=== PATIENT | male | born 1935 | race Caucasian/White ===

== ENCOUNTER 2021-12-13 17:23 | Inpatient (IN) ==
[~2021-12-13 17:23] MED LIST: REMDESIVIR 100 MG in 0.9 % SODIUM CHLORIDE 250 ML IV SCH
[2021-12-13] MEDS ORDERED: IOPAMIDOL 100 ML BOTTLE IV ONE (17:24)
[2021-12-13] MEDS ORDERED: 0.9 % SODIUM CHLORIDE 1,000 ML IV ONE (17:42)
[2021-12-13] MEDS ORDERED: ACETAMINOPHEN 1,000 MG/100 ML BAG IV ONE (17:44)
--- NOTE | 2021-12-13 17:44 | Emergency Department Note ---
HPI General Chief complaint: Shortness of Breath/Dyspnea Stated complaint: SOB. altered mental Time Seen by Provider: 12/13/21 17:30 Source: EMS Mode of arrival: EMS History of Present Illness HPI Narrative: This is an 86-year-old male patient who was seen yesterday for hypoxia and diagnosed with Covid infection. Oxygen requirements were 1 to 2 L to keep his sats above 90% yesterday, and the patient had a unremarkable work-up other than his Covid, and was discharged home. Today he returns with evidence of sepsis with tachycardia to 129 bpm, respiratory rate of 28, temperature of 102.9 Fahrenheit, and oxygen saturations that were noted to be 83% on his 2 L of home oxygen. He is now satting 98% on 15 L nonrebreather mask. The patient is a poor historian and has minimal verbal interaction. He does nod his head to yes and no. Unclear if he has baseline cognitive dysfunction. His mentation is not significantly altered from yesterday. He is able to tell me the year, his name, and he knows this but cannot tell me the date of 's . Related Data Home Medications Medication Instructions Recorded Confirmed Straight Tip Urine Catheter 12/12/21 12/12/21 allopurinol 100 mg tablet 200 mg PO BID 12/12/21 12/12/21 Previous Rx's Medication Instructions Recorded cholecalciferol (vitamin D3) 25 1,000 unit PO QDAY #90 cap 09/03/15 mcg (1,000 unit) capsule lisinopril 2.5 mg tablet (Zestril) 2.5 mg PO BID #180 tab 08/12/21 metoprolol tartrate 50 mg tablet 25 mg PO BID #90 tab 08/12/21 (Lopressor) simvastatin 20 mg tablet (Zocor) 20 mg PO QPM #90 tab 08/12/21 metformin 500 mg tablet,extended 500 mg PO QDAY #90 tab 09/09/21 release 24 hr Allergies Allergy/AdvReac Type Severity Reaction Status Date / Time Penicillins Allergy Unknown Rash Verified 12/12/21 15:25 Review of Systems ROS ROS Narrative: Not obtained secondary to altered mental status, poor historian [facility] Narrative Patient History Narrative: Narrative: Medical/Surgical/Family History All Active Problems (Updated 12/13/21 @ 19:57 by Leena Gimenez PA-C) Generalized weakness (Acute) Acute UTI (Acute) COVID-19 (Acute) Acute dehydration (Acute) Hypoxia (Acute) Pneumonia due to 2019 novel coronavirus (Acute) Hypoxia (Acute) Sepsis (Acute) Acute delirium (Acute) Pneumonia (Acute) HTN (hypertension) (Acute) DM2 (diabetes mellitus, type 2) (Acute) Bacterial lobar pneumonia (Acute) Gout (Acute) Annual physical exam (Acute) Medicare annual wellness visit, subsequent (Acute) Urinary retention (Acute) Rash (Acute) Medicare annual wellness visit, subsequent (Acute) Prediabetes (Acute) Urinary retention (Acute) Cellulitis of hand, right (Acute) Occipital neuralgia of right side (Acute) Concussion without loss of consciousness (Acute) Abrasion, face w/o infection (Acute) 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) History of knee replacement (Acute) History of carotid endarterectomy (Acute) Hx of CABG (Acute) History of appendectomy (Acute) Urinary incontinence (Acute 03/18/15) Hyperlipidemia (Acute) Gout (Acute) Benign neoplasm of colon (Acute) Cerebrovascular disease (Acute) Carotid artery occlusion (Acute) CAD (coronary artery disease) (Acute) Bladder neck obstruction (Acute) Anemia (Acute 03/18/15) Medical History Abrasion, face w/o infection Anemia (03/18/15) Annual physical exam Bacterial lobar pneumonia Benign neoplasm of colon Bladder neck obstruction CAD (coronary artery disease) (Post CABG) Carotid artery occlusion L CEA Cellulitis of hand, right Cerebrovascular disease Concussion without loss of consciousness Diabetes mellitus, type II Gout Hyperlipidemia Medicare annual wellness visit, subsequent Medicare annual wellness visit, subsequent Occipital neuralgia of right side Rash Urinary bladder neurogenic dysfunction Urinary incontinence (03/18/15) Urinary retention Surgical History History of appendectomy History of carotid endarterectomy L History of knee replacement bilateral History of photovaporization of prostate (12/10/15) Hx of CABG 4 vessel Family History Unknown No pertinent family history Social History Smoking Status: Former smoker Alcohol Intake Frequency: does not drink Substance Use: does not use Exam Narrative Narrative: General: Alert and oriented to self and year. NAD, weak appearing. Mostly nonverbal HEENT: PERRL, EOMI, normocephalic. Moist mucous membranes. Normal facies and normal dentition. Chest: Symmetric, no pain to palpation Respiratory: Lungs clear to auscultation bilaterally. No respiratory distress. Unlabored breathing. Saturating 97% on 15 L nonrebreather mask. Heart: Regular rate and rhythm, no murmurs/clicks/rubs. Abdomen: Non-tender, Non distended hypoactive bowel tones. No organomegaly. Extremities: Warm and well perfused. No edema. DP 2+ bilaterally. No venous stasis. Neuro: No focal deficits. Cranial nerves II-XII grossly normal. Answering limited questions Skin: Warm dry, no rashes or lesions, no cyanosis. Psych: Normal mood and affect Heme/Lymph: No abnormal bruising Course Course Course Narrative: 86-year-old male with COVID-19 presents for worsening symptoms and concern for sepsis Reevaluation(s) Reevaluation #1: Basic labs, UA, repeat chest x-ray IV fluids, Tylenol for fever Lactic acid and blood cultures Reevaluation #2: Lactic acid is 1.9. Patient's heart rate improved to 105 with 1 L IV fluids and 1g of IV Tylenol. Blood pressure stable at 112/82 mmHg. O2 sats are 97% on 12 L nonrebreather mask. Chest x-ray shows increasing bilateral lower lobe infiltrates that were read as atelectasis yesterday. White blood cell count is 11,800; however, the patient received 6 mg of IV dexamethasone yesterday and this may be a steroid-induced leukocytosis. Check a procalcitonin and given additional 6 mg of IV dexamethasone x1 dose. The patient will need admission for hypoxia and Covid pneumonia and I am awaiting the hospitalist for consult. Vital Signs Vital signs: Vital Signs Temperature 102.9 F H 12/13/21 17:27 Pulse Rate 129 H 12/13/21 17:27 Respiratory Rate 28 H 12/13/21 17:27 Pulse Oximetry (%) 89 L 12/13/21 17:27 Temperature 98.0 F 12/13/21 20:09 Pulse Rate 78 12/13/21 20:22 Respiratory Rate 21 12/13/21 19:16 Blood Pressure 127/66 12/13/21 20:22 Pulse Oximetry (%) 94 12/13/21 20:22 MDM MDM Narrative Medical decision making narrative: Covid pneumonia Hypoxia Weakness Altered mental status Sepsis Patient has been accepted for admission for hypoxia and Covid pneumonia. Lab Data Result diagrams: 12/13/21 17:45 12/13/21 17:45 Labs: Lab Results 12/13/21 12/13/21 12/13/21 Range/Units 17:45 17:45 17:45 WBC 11.8 H (4.5-11.0) K/mcL RBC 3.78 L (4.63-6.08) M/mcL Hgb 11.8 L (13.7-17.5) g/dL Hct 35.6 L (40.1-51.0) % MCV 94.2 (80.0-100.0) fL MCH 31.2 (26.0-34.0) pg MCHC 33.1 (31.0-36.0) g/dL RDW 13.2 (11.5-14.5) % Plt Count 308 (140-440) K/mcL MPV 9.6 (7.4-10.4) fL Seg Neutrophils % 95 H (38-78) % Band Neutrophils % 1 (0-10) % Monocytes % (Manual) 4 (1-12) % Platelet Estimate Normal (Normal) RBC Morphology Normal (Normal) D-Dimer (0.27-0.50) ug/mL VBG Lactic Acid 1.9 (0.5-2.0) mmol/L Sodium 130 L (133-145) mmol/L Potassium 4.7 (3.3-5.1) mmol/L Chloride 98 (96-108) mmol/L Carbon Dioxide 17 L (22-30) mmol/L Anion Gap 15.0 (8.0-16.0) BUN 33 H (8-23) mg/dL Creatinine 1.3 H (0.7-1.2) mg/dL GFR Calculation 49 Glucose 116 H (70-105) mg/dL Calcium 8.8 (8.6-10.4) mg/dL Total Bilirubin 0.4 (0.1-1.0) mg/dL AST 38 (<40) U/L ALT 19 (<40) U/L Alkaline Phosphatase 77 (39-117) U/L C-Reactive Protein (0.03-0.80) mg/dL Total Protein 6.7 (5.9-8.4) gm/dL Albumin 3.8 (3.2-5.2) gm/dL Globulin 2.9 (2.2-3.7) gm/dL Albumin/Globulin Ratio 1.3 (1.0-2.3) Urine Color Urine Appearance (Clear) Urine pH (5.0-9.0) Ur Specific [place] (1.000-1.035) Urine Protein (Negative) mg/dL Urine Glucose (UA) (Negative) mg/dL Urine Ketones (Negative) mg/dL Urine Occult Blood (Negative) jackson/mcL Urine Nitrate (Negative) Urine Bilirubin (Negative) mg/dL Urine Urobilinogen mg/dL Ur Leukocyte Esterase (Negative) /uL Urine RBC (0-3) /hpf Urine WBC (0-4) /hpf Ur Squamous Epith Cells (0-4) /hpf Urine Bacteria (0) /hpf Other Casts (None) /lph Urine Mucus (None) /hpf Ur Culture Indicated? 12/13/21 12/13/21 12/13/21 Range/Units 17:45 17:45 18:40 WBC (4.5-11.0) K/mcL RBC (4.63-6.08) M/mcL Hgb (13.7-17.5) g/dL Hct (40.1-51.0) % MCV (80.0-100.0) fL MCH (26.0-34.0) pg MCHC (31.0-36.0) g/dL RDW (11.5-14.5) % Plt Count (140-440) K/mcL MPV (7.4-10.4) fL Seg Neutrophils % (38-78) % Band Neutrophils % (0-10) % Monocytes % (Manual) (1-12) % Platelet Estimate (Normal) RBC Morphology (Normal) D-Dimer 3.88 H (0.27-0.50) ug/mL VBG Lactic Acid (0.5-2.0) mmol/L Sodium (133-145) mmol/L Potassium (3.3-5.1) mmol/L Chloride (96-108) mmol/L Carbon Dioxide (22-30) mmol/L Anion Gap (8.0-16.0) BUN (8-23) mg/dL Creatinine (0.7-1.2) mg/dL GFR Calculation Glucose (70-105) mg/dL Calcium (8.6-10.4) mg/dL Total Bilirubin (0.1-1.0) mg/dL AST (<40) U/L ALT (<40) U/L Alkaline Phosphatase (39-117) U/L C-Reactive Protein 7.40 H (0.03-0.80) mg/dL Total Protein (5.9-8.4) gm/dL Albumin (3.2-5.2) gm/dL Globulin (2.2-3.7) gm/dL Albumin/Globulin Ratio (1.0-2.3) Urine Color Yellow Urine Appearance Clear (Clear) Urine pH 5.0 (5.0-9.0) Ur Specific [place] 1.020 (1.000-1.035) Urine Protein 100 mg/dl A (Negative) mg/dL Urine Glucose (UA) Negative (Negative) mg/dL Urine Ketones Negative (Negative) mg/dL Urine Occult Blood Small A (Negative) jackson/mcL Urine Nitrate Negative (Negative) Urine Bilirubin Negative (Negative) mg/dL Urine Urobilinogen Normal mg/dL Ur Leukocyte Esterase Negative (Negative) /uL Urine RBC 1 (0-3) /hpf Urine WBC 2 (0-4) /hpf Ur Squamous Epith Cells 1 (0-4) /hpf Urine Bacteria None (0) /hpf Other Casts Mod A (None) /lph Urine Mucus Mod A (None) /hpf Ur Culture Indicated? No Discharge Plan Patient/Caregiver Discharge Instructions Pt seen by [employer]/PA only: Yes Clinical Impression: Pneumonia due to 2019 novel coronavirus, Hypoxia, Sepsis Patient Disposition: Xfer As Inpt ([facility]) Condition: Fair Follow up with: Giovanni Klein MD [Primary Care Provider] - Prescriptions: No Action cholecalciferol (vitamin D3) 1,000 unit capsule 1,000 unit PO QDAY Qty: 90 3RF Rx Instructions: administer with meals simvastatin [Zocor] 20 mg tablet 20 mg PO QPM Qty: 90 1RF lisinopril [Zestril] 2.5 mg tablet 2.5 mg PO BID Qty: 180 1RF metoprolol tartrate [Lopressor] 50 mg tablet 25 mg PO BID Qty: 90 1RF metformin 500 mg tablet extended release 24 hr 500 mg PO QDAY Qty: 90 1RF Rx Instructions: administer with evening meal allopurinol 100 mg tablet 200 mg PO BID 0RF (DME) Straight Tip Urine Catheter 8 0RF Rx Instructions: 16fr TID as directed.
--- NOTE | 2021-12-13 18:16 | XRay Report ---
INDICATION: hypoxia, sepsis TECHNIQUE: AP portable chest x-ray COMPARISON: Previous chest x-rays dated 12/12/2021, 12/01/2021 FINDINGS: Lungs:Bilateral pulmonary parenchymal infiltrates. These are predominantly peripherally distributed. Infiltrates are significantly worse than on previous examination. Findings suggest atypical pneumonia, probably covid Heart, vascular:No significant cardiomegaly. Pulmonary vascularity is normal. No pulmonary edema or pulmonary congestion. Previous median sternotomy and findings consistent with coronary artery bypass procedure Mediastinum, kosta:No mediastinal widening. No hilar mass Pleura:No pleural fluid. No pleural-based mass or calcification Skeletal:Negative. IMPRESSION: 1. Increasing pulmonary parenchymal infiltrates with peripheral distribution 2. Findings are consistent with atypical pneumonia, probably covid. There is been significant interval worsening since 12/12/2021 Interpreted and Authenticated by: Edd Novoa 12/13/21
[2021-12-13 18:31] LABS: Hematocrit 35.6 % (40.1-51.0); Hemoglobin 11.8 g/dL (13.7-17.5); Mean Cell Volume 94.2 fL (80.0-100.0); Mean Corpuscular HGB Conc 33.1 g/dL (31.0-36.0); Mean Platelet Volume 9.6 fL (7.4-10.4); Platelet Count 308 K/mcL (140-440); RBC 3.78 M/mcL (4.63-6.08); Red Cell Distribution Width 13.2 % (11.5-14.5); WBC 11.8 K/mcL (4.5-11.0)
[2021-12-13 19:19] LABS: ALT/SGPT 19 U/L (<40); AST/SGOT 38 U/L (<40); Albumin 3.8 gm/dL (3.2-5.2); Albumin/Globulin Ratio 1.3 (1.0-2.3); Alkaline Phosphatase 77 U/L (39-117); Bilirubin,Total 0.4 mg/dL (0.1-1.0); Blood Urea Nitrogen 33 mg/dL (8-23); Calcium 8.8 mg/dL (8.6-10.4); Carbon Dioxide 17 mmol/L (22-30); Chloride 98 mmol/L (96-108); Globulin 2.9 gm/dL (2.2-3.7); Glomerular Filtration Rate 49; Glucose 116 mg/dL (70-105)
[2021-12-13] MEDS ORDERED: DEXAMETHASONE 10 MG/ML VIAL IV ONE (19:27)
[2021-12-13 19:36] LABS: Band Neutrophils % 1 % (0-10); Monocytes % (Manual) 4 % (1-12); Platelet Estimate NORMAL (Normal); RBC Morphology NORMAL (Normal); Segmented Neutrophils % 95 % (38-78)
[2021-12-13 19:59] LABS: Appearance,Urine Clear (Clear); Bilirubin,Urine Negative (Negative); Color,Urine Yellow; Culture Indicated,Urine No; Glucose,Urine (UA) Negative (Negative); Ketones,Urine Negative (Negative); Leukocyte Esterase,Urine Negative /uL (Negative); Mucus,Urine MOD /hpf; Nitrate,Urine Negative (Negative); Other Casts,Urine MOD /lph; Urine Blood Small ery/mcL (Negative); Urine RBC 1 /hpf (0-3); Urine Squamous Epithelial Cell 1 /hpf (0-4); Urine WBC 2 /hpf (0-4); Urobilinogen,Urine Normal
[2021-12-13] MEDS ORDERED: REMDESIVIR 200 MG in 0.9 % SODIUM CHLORIDE 250 ML IV ONE ×2 (20:17→21:45)
--- NOTE | 2021-12-13 20:17 | Internal Med History&Physical ---
HPI History of Present Illness Patient information: Note initiated : 12/13/21 at 8:07 pm Service Date, if different from initiated Date: [] Patient: Mushtaq Demarco a 86 y/o M admitted on for SOB. altered mental. Chief Complaint: [] History of present illness: Mr. Demarco is a 86 year old M Is a poor historian and most of history is obtained from the chart. Patient was brought in yesterday for weakness that has been increasing over the past week. Patient is unvaccinated for Covid. Is hypoxic in the ED and required 4 L of oxygen. He was found to be Covid positive. Patient remained stable in ER and had home oxygen and was discharged with fol low-up. However patient presented back today with dyspnea. He was febrile and tachycardic in the ED. His oxygen saturations were 83% on at home on oxygen. Placed on a nonrebreather in the ED titrated down to 10 to 12 L oxygen mask. Chest x-ray with bilateral infiltrates. Mild leukocytosis although did get steroids yesterday in the ED. Also found to be hyponatremic. Renal function improved from yesterday. In the ED he was given dexamethasone. Review of Systems: Pertinent positives as above. Denies headache/fever/chills/nausea/vomiting/chest or abdominal pain/diarrhea. Remaining 10 point review of system reviewed negative PFSH PFSH All Active Problems (Updated 12/13/21 @ 19:57 by Leena Gimenez PA-C) Generalized weakness (Acute) Acute UTI (Acute) COVID-19 (Acute) Acute dehydration (Acute) Hypoxia (Acute) Pneumonia due to 2019 novel coronavirus (Acute) Hypoxia (Acute) Sepsis (Acute) Acute delirium (Acute) Pneumonia (Acute) HTN (hypertension) (Acute) DM2 (diabetes mellitus, type 2) (Acute) Bacterial lobar pneumonia (Acute) Gout (Acute) Annual physical exam (Acute) Medicare annual wellness visit, subsequent (Acute) Urinary retention (Acute) Rash (Acute) Medicare annual wellness visit, subsequent (Acute) Prediabetes (Acute) Urinary retention (Acute) Cellulitis of hand, right (Acute) Occipital neuralgia of right side (Acute) Concussion without loss of consciousness (Acute) Abrasion, face w/o infection (Acute) 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) History of knee replacement (Acute) History of carotid endarterectomy (Acute) Hx of CABG (Acute) History of appendectomy (Acute) Urinary incontinence (Acute 03/18/15) Hyperlipidemia (Acute) Gout (Acute) Benign neoplasm of colon (Acute) Cerebrovascular disease (Acute) Carotid artery occlusion (Acute) CAD (coronary artery disease) (Acute) Bladder neck obstruction (Acute) Anemia (Acute 03/18/15) Medical History Abrasion, face w/o infection Anemia (03/18/15) Annual physical exam Bacterial lobar pneumonia Benign neoplasm of colon Bladder neck obstruction CAD (coronary artery disease) (Post CABG) Carotid artery occlusion L CEA Cellulitis of hand, right Cerebrovascular disease Concussion without loss of consciousness Diabetes mellitus, type II Gout Hyperlipidemia Medicare annual wellness visit, subsequent Medicare annual wellness visit, subsequent Occipital neuralgia of right side Rash Urinary bladder neurogenic dysfunction Urinary incontinence (03/18/15) Urinary retention Surgical History History of appendectomy History of carotid endarterectomy L History of knee replacement bilateral History of photovaporization of prostate (12/10/15) Hx of CABG 4 vessel Family History Unknown No pertinent family history Social History household members: spouse marital status: education level: college occupational status: retired other: Children 3/7gc/8ggc smoking status: Never smoker alcohol intake frequency: does not drink substance use type: does not use MEDS/ALLERGIES Home Medications and Allergies Home Medications Medication Instructions Recorded Confirmed Type cholecalciferol (vitamin D3) 25 1,000 unit PO QDAY #90 cap 09/03/15 12/12/21 Rx mcg (1,000 unit) capsule lisinopril 2.5 mg tablet (Zestril) 2.5 mg PO BID #180 tab 08/12/21 12/12/21 Rx metoprolol tartrate 50 mg tablet 25 mg PO BID #90 tab 08/12/21 12/12/21 Rx (Lopressor) simvastatin 20 mg tablet (Zocor) 20 mg PO QPM #90 tab 08/12/21 12/12/21 Rx metformin 500 mg tablet,extended 500 mg PO QDAY #90 tab 09/09/21 12/12/21 Rx release 24 hr Straight Tip Urine Catheter 12/12/21 12/12/21 History allopurinol 100 mg tablet 200 mg PO BID 12/12/21 12/12/21 History Allergies Allergy/AdvReac Type Severity Reaction Status Date / Time Penicillins Allergy Unknown Rash Verified 12/12/21 15:25 EXAM Constitutional Vitals: Temp Pulse Resp BP Pulse Ox 102.9 F H 86 21 134/67 97 12/13/21 17:27 12/13/21 19:47 12/13/21 19:16 12/13/21 19:47 12/13/21 19:47 Exam: General: Alert, Awake, No acute Distress Eyes/N/T: EOMI, PERRL, Head/Neck: neck supple, normocephalic atraumatic CV: RRR, No murmurs, normal s1/s2 Pulm: Rales b/l, no wheezing Abd: soft, nontender, +BS x4 Ext: no clubbing/cyanosis, mild b/l LE edema Neuro: Alert, no focal deficits, moves all extremities, CN 2-12 grossly intact, symmetrical strength b/l upper/lower, sensations intact b/l upper/lower. Skin: warm/dry DATA Data Completed and Pending Labs: Labs from last 24 hours 12/13/21 12/13/21 12/13/21 18:40 17:45 17:45 WBC RBC Hgb Hct MCV MCH MCHC RDW Plt Count MPV Seg Neutrophils % Band Neutrophils % Monocytes % (Manual) Platelet Estimate RBC Morphology D-Dimer Pending VBG Lactic Acid Sodium Potassium Chloride Carbon Dioxide Anion Gap BUN Creatinine GFR Calculation Glucose Calcium Ferritin Pending Total Bilirubin AST ALT Alkaline Phosphatase C-Reactive Protein Pending Total Protein Albumin Globulin Albumin/Globulin Ratio Procalcitonin Urine Color Yellow Urine Appearance Clear Urine pH 5.0 Ur Specific [place] 1.020 Urine Protein 100 mg/dl A Urine Glucose (UA) Negative Urine Ketones Negative Urine Occult Blood Small A Urine Nitrate Negative Urine Bilirubin Negative Urine Urobilinogen Normal Ur Leukocyte Esterase Negative Urine RBC 1 Urine WBC 2 Ur Squamous Epith Cells 1 Urine Bacteria None Other Casts Mod A Urine Mucus Mod A Ur Culture Indicated? No 12/13/21 12/13/21 12/13/21 17:45 17:45 17:45 WBC RBC Hgb Hct MCV MCH MCHC RDW Plt Count MPV Seg Neutrophils % Band Neutrophils % Monocytes % (Manual) Platelet Estimate RBC Morphology D-Dimer VBG Lactic Acid 1.9 Sodium 130 L Potassium 4.7 Chloride 98 Carbon Dioxide 17 L Anion Gap 15.0 BUN 33 H Creatinine 1.3 H GFR Calculation 49 Glucose 116 H Calcium 8.8 Ferritin Total Bilirubin 0.4 AST 38 ALT 19 Alkaline Phosphatase 77 C-Reactive Protein Total Protein 6.7 Albumin 3.8 Globulin 2.9 Albumin/Globulin Ratio 1.3 Procalcitonin Pending Urine Color Urine Appearance Urine pH Ur Specific [place] Urine Protein Urine Glucose (UA) Urine Ketones Urine Occult Blood Urine Nitrate Urine Bilirubin Urine Urobilinogen Ur Leukocyte Esterase Urine RBC Urine WBC Ur Squamous Epith Cells Urine Bacteria Other Casts Urine Mucus Ur Culture Indicated? 12/13/21 17:45 WBC 11.8 H RBC 3.78 L Hgb 11.8 L Hct 35.6 L MCV 94.2 MCH 31.2 MCHC 33.1 RDW 13.2 Plt Count 308 MPV 9.6 Seg Neutrophils % 95 H Band Neutrophils % 1 Monocytes % (Manual) 4 Platelet Estimate Normal RBC Morphology Normal D-Dimer VBG Lactic Acid Sodium Potassium Chloride Carbon Dioxide Anion Gap BUN Creatinine GFR Calculation Glucose Calcium Ferritin Total Bilirubin AST ALT Alkaline Phosphatase C-Reactive Protein Total Protein Albumin Globulin Albumin/Globulin Ratio Procalcitonin Urine Color Urine Appearance Urine pH Ur Specific [place] Urine Protein Urine Glucose (UA) Urine Ketones Urine Occult Blood Urine Nitrate Urine Bilirubin Urine Urobilinogen Ur Leukocyte Esterase Urine RBC Urine WBC Ur Squamous Epith Cells Urine Bacteria Other Casts Urine Mucus Ur Culture Indicated? 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
[2021-12-13] MEDS ORDERED: MAGNESIUM SULFATE 2 GM/50 ML BAG IV PRN (21:37)
[2021-12-13] MEDS ORDERED: TOCILIZUMAB 800 MG in 0.9 % SODIUM CHLORIDE 60 ML IV ONE (21:37)
[2021-12-13] MEDS ORDERED: POTASSIUM CHLORIDE 40 MEQ in DEXTROSE 5% IN WATER 500 ML IV PRN (21:37)
[2021-12-13] MEDS ORDERED: ONDANSETRON 4 MG/2 ML VIAL IV PRN (21:37)
[2021-12-13] MEDS ORDERED: POTASSIUM CHLORIDE 20 MEQ TABLET PO PRN ×2 (21:37)
[2021-12-13] MEDS ORDERED: POLYETHYLENE GLYCOL 3350 17 GM PACKET PO PRN (21:37)
[2021-12-13] MEDS ORDERED: IPRATROPIUM/ALBUTEROL 3 ML AMPUL.NEB NEB PRN (21:37)
[2021-12-13] MEDS ORDERED: FUROSEMIDE 40 MG/4 ML VIAL IV ONE (21:37)
[2021-12-13] MEDS ORDERED: SENNOSIDES 1 TABLET PO PRN (21:37)
[2021-12-13] MEDS: ENOXAPARIN 40 MG/0.4 ML SYRINGE SQ SCH (22:51)
[2021-12-13] MEDS: DOCUSATE SODIUM 100 MG CAPSULE PO SCH (22:52)
[2021-12-13] MEDS: 0.9 % SODIUM CHLORIDE 10 ML SYRINGE IV SCH (22:52)
[2021-12-13] MEDS: BARICITINIB 2 MG TABLET PO SCH (22:52)
[2021-12-13] MEDS: ACETAMINOPHEN 325 MG TABLET PO PRN (22:56)
[2021-12-13 23:24] LABS: Hemoglobin A1C 5.6 % Hgb (4.0-6.0)
[2021-12-14] MEDS: 0.9 % SODIUM CHLORIDE 10 ML SYRINGE IV SCH ×3 (05:30→20:21)
--- NOTE | 2021-12-14 06:12 | Cat Scan Report ---
INDICATION: covid, dimer, hypoxia COMPARISON: Chest x-rays dated 12/13/2021, 12/12/2021, 12/01/2021 TECHNIQUE: Axial images obtained through the chest. 80ml Isovue [id number] injected intravenously, and scanning was performed during pulmonary arterial phase. Sagittally and coronally reformatted images were obtained. MIP reformatted images. FINDINGS: Examination was initially interpreted by [facility] Lungs:Bilateral pulmonary parenchymal infiltrates. These are predominantly groundglass in type with peripheral distribution. Appearance is consistent with covid pneumonia. Mediastinum, vascular:Main pulmonary artery, right pulmonary artery, left pulmonary artery are negative. No intraluminal filling defects. No lobar, segmental, or subsegmental emboli. Thoracic aorta is negative. No aneurysmal dilatation No pathologic mediastinal or hilar adenopathy Heart:No cardiomegaly. No pericardial effusion. Severe coronary artery disease. Previous coronary artery bypass procedure Pleura:There is trace left pleural fluid. Axilla, supraclavicular regions, chest wall:No pathologic axillary or supraclavicular adenopathy. Musculoskeletal:Negative thoracic spine. No compression fracture. No lytic lesion. No rib or sternal lesions Upper Abdomen:Small hiatal hernia. Prominent adrenal glands bilaterally. This probably represents adrenal hyperplasia. No discrete mass IMPRESSION: 1. Negative pulmonary CTA. No pulmonary embolism 2. Pulmonary parenchymal infiltrates consistent with covid pneumonia 3. Severe atherosclerotic calcification. Previous coronary artery bypass procedure The exam was performed using radiation dose optimization techniques including, but not limited to, automated exposure control, adjustment of the mA and/or kV according to patient size and use of iterative reconstruction technique. Interpreted and Authenticated by: Edd Novoa 12/14/21
[2021-12-14 07:12] LABS: Hematocrit 32.7 % (40.1-51.0); Hemoglobin 10.6 g/dL (13.7-17.5); Mean Cell Volume 95.1 fL (80.0-100.0); Mean Corpuscular HGB Conc 32.4 g/dL (31.0-36.0); Mean Platelet Volume 9.8 fL (7.4-10.4); Platelet Count 292 K/mcL (140-440); RBC 3.44 M/mcL (4.63-6.08); Red Cell Distribution Width 13.2 % (11.5-14.5); WBC 6.5 K/mcL (4.5-11.0)
[2021-12-14 07:44] LABS: ALT/SGPT 16 U/L (<40); AST/SGOT 33 U/L (<40); Alkaline Phosphatase 66 U/L (39-117); Bilirubin,Direct < 0.2 mg/dL (0-0.3); Bilirubin,Total 0.2 mg/dL (0.1-1.0); Blood Urea Nitrogen 35 mg/dL (8-23); Calcium 8.3 mg/dL (8.6-10.4); Carbon Dioxide 18 mmol/L (22-30); Chloride 104 mmol/L (96-108); Glomerular Filtration Rate 41; Glucose 154 mg/dL (70-105); Lactate Dehydrogenase 377 U/L (135-225); Triglycerides 82 mg/dL (<150); Uric Acid 4.3 mg/dL (2.5-8.0)
[2021-12-14] MEDS ORDERED: DEXTROSE 50% 50 ML VIAL IV PRN (07:47)
[2021-12-14] MEDS ORDERED: DEXTROSE 31 GM ORAL.SUSP PO PRN (07:47)
--- NOTE | 2021-12-14 07:47 | Internal Med Progress Note ---
SUBJECTIVE Subjective Patient information: Note initiated : 12/14/21 at 7:43 am Service Date, if different from initiated Date: [] Patient: Mushtaq Demarco 86 y/o M admitted on 12/13/21 for SOB. altered mental. Chief Complaint: [] Interval history: History of present illness: Mr. Demarco is a 86 year old M Is a poor historian and most of history is obtained from the chart. Patient was brought in yesterday for weakness that has been increasing over the past week. Patient is unvaccinated for Covid. Is hypoxic in the ED and required 4 L of oxygen. He was found to be Covid positive. Patient remained stable in ER and had home oxygen and was discharged with follow-up. However patient presented back today with dyspnea. He was febrile and tachycardic in the ED. His oxygen saturations were 83% on at home on oxygen. Placed on a nonrebreather in the ED titrated down to 10 to 12 L oxygen mask. Chest x-ray with bilateral infiltrates. Mild leukocytosis although did get steroids yesterday in the ED. Also found to be hyponatremic. Renal function improved from yesterday. In the ED he was given dexamethasone. 12/14 Patient seems to be doing well today. On 4 to 6 L nasal cannula. No overnight event or new complaints. No leukocytosis today, no bandemia on yesterday lab. Concern for pneumonia on chest imaging and procalcitonin mildly elevated Hyponatremia resolved. Review of Systems: denies headache/fever/chills/nausea/vomiting/chest or abdominal pain/diarrhea. Otherwise see above. Constitutional Vitals: Vital Signs Temp Pulse Resp BP Pulse Ox 97.3 F 62 12 143/57 99 12/14/21 04:01 12/14/21 06:26 12/14/21 06:26 12/14/21 06:01 12/14/21 06:26 Period Temp Pulse Resp BP Sys/Echevarria Pulse Ox Last 24 Hr 97.3 F-102.9 F 57-129 12-93 104-165/54-99 89-100 Intake and Output 12/13/21 12/14/21 12/14/21 21:59 05:59 13:59 Intake Total 1100 250 Output Total 750 Balance 1100 -500 Weight 95.963 kg 95.963 kg Intake & Output: Intake & Output 12/13/21 12/14/21 12/14/21 21:59 05:59 13:59 Intake Total 1100 250 Output Total 750 Balance 1100 -500 Weight 95.963 kg 95.963 kg Intake: IV 1100 250 Sodium Chloride 0.9% 1,000 ml @ 1000 Wide Open IV BOLUS ONE Rx#: [id number] Veklury 200 mg In Sodium 250 Chloride 0.9% 250 ml @ 500 mls/ hr IV ONCE ONE Rx#:[id number] Output: Urine Catheter Amount 750 Other: Urine Appearance Clear Urine Color Bright Yellow Stool Size Moderate Stool Color Brown Stool Consistency Soft # Bowel Movements 1 # of times incontinent of 1 Bowels Exam: General: Alert, Awake, No acute Distress Eyes/N/T: EOMI,, Head/Neck: neck supple, CV: RRR, No murmurs, Pulm: Rales b/l, no wheezing Abd: soft, nontender, +BS x4 Ext: no clubbing/cyanosis, mild b/l LE edema Neuro: Alert, no focal deficits, moves all extremities, Skin: warm/dry OBJ DATA Labs CBC & Chem 7: 12/14/21 05:33 12/14/21 05:33 Labs: Abnormal Lab Results 12/14/21 12/13/21 12/13/21 05:33 18:40 17:45 WBC RBC 3.44 L Hgb 10.6 L Hct 32.7 L Seg Neutrophils % D-Dimer Sodium Carbon Dioxide BUN Creatinine Glucose Ferritin 1423.0 H C-Reactive Protein 7.40 H Procalcitonin Urine Protein 100 mg/dl A Urine Occult Blood Small A Other Casts Mod A Urine Mucus Mod A 12/13/21 12/13/21 12/13/21 17:45 17:45 17:45 WBC RBC Hgb Hct Seg Neutrophils % D-Dimer 3.88 H Sodium 130 L Carbon Dioxide 17 L BUN 33 H Creatinine 1.3 H Glucose 116 H Ferritin C-Reactive Protein Procalcitonin 0.22 H Urine Protein Urine Occult Blood Other Casts Urine Mucus 12/13/21 17:45 WBC 11.8 H RBC 3.78 L Hgb 11.8 L Hct 35.6 L Seg Neutrophils % 95 H D-Dimer Sodium Carbon Dioxide BUN Creatinine Glucose Ferritin C-Reactive Protein Procalcitonin Urine Protein Urine Occult Blood Other Casts Urine Mucus Meds: Medications Acetaminophen (Acetaminophen 325 Mg Tablet) 650 mg PO Q6HP PRN; Protocol PRN Reason: Per Pain Protocol/Fever > 101 Last Admin: 12/13/21 22:56 Dose: 650 mg Documented by: Albuterol/Ipratropium (Ipratropium/Albuterol 3 Ml Ampul.Neb) 3 ml NEB Q4HP PRN PRN Reason: Shortness Of Breath Aspirin (Aspirin 81 Mg Tab.Chew) 81 mg PO DAILY [facility] Dexamethasone (Dexamethasone 4 Mg Tablet) 6 mg PO DAILY [facility] Docusate Sodium (Docusate Sodium 100 Mg Capsule) 100 mg PO BID [facility] Last Admin: 12/13/21 22:52 Dose: Not Given Documented by: Enoxaparin Sodium (Enoxaparin 40 Mg/0.4 Ml Syringe) 40 mg SQ BID [facility] Last Admin: 12/13/21 22:51 Dose: 40 mg Documented by: Potassium Chloride 40 meq/ (Dextrose) 520 mls @ 130 mls/hr IV UD PRN PRN Reason: Potassium < 3 Magnesium Sulfate (Magnesium Sulfate) 2 gm in 50 mls @ 50 mls/hr IV UD PRN PRN Reason: Magnesium </= 1.6 REMDESIVIR 100 mg/ Sodium (Chloride) 250 mls @ 500 mls/hr IV Q24H [facility] Stop: 12/14/21 15:59 Last Admin: 12/13/21 22:18 Dose: Not Given Documented by: Ondansetron HCl (Ondansetron 4 Mg/2 Ml Vial) 4 mg IV Q4HP PRN PRN Reason: Nausea And Vomiting Polyethylene Glycol (Polyethylene Glycol 3350 17 Gm Packet) 17 gm PO DAILYP PRN PRN Reason: Constipation Potassium Chloride (Potassium Chloride 20 Meq Tablet) 40 meq PO UD PRN PRN Reason: Potssium is 3-3.5 Potassium Chloride (Potassium Chloride 20 Meq Tablet) 40 meq PO UD PRN PRN Reason: Potassium < 3 Senna (Sennosides 1 Tablet) 2 tab PO DAILYP PRN PRN Reason: Constipation Sodium Chloride (0.9 % Sodium Chloride 10 Ml Syringe) 10 ml IV Q8 [facility] Last Admin: 12/14/21 05:30 Dose: 10 ml Documented by: A/P Narrative A/P Narrative: A: *Covid PNA w/ARDS & concern for bacterial coinfection: -not vaccinated *Acute hypoxic respiratory failure: 2/2 above -down to 5-6L NC. No PE *Hyponatremia: resolved *Metabolic acidosis: *CKD III: *Anemia, chronic: *CAD w/CABG: has statin but don't see ASA on home meds *HTN: *Urinary retention: Patient straight caths at home *DM: a1c 5.6 *Suspect underlying Dementia: P: -Remdesivir/dexamethasone/Baricit -IS/Acapella, prn Nebs, RT -O2 supplementation with HFNC, wean as able -Proning/mobilization/OOB to chair -Abx, -prn lasix -cont ACEI/BB -start ASA, cont statin -SSI -Home medication reconciliation -pt/ot -ppx: lovenox bid Time Spent With Patient Time: Total time spent is greater than 50% in coordination of care (as documented) at patient's floor/unit and/or counseling patient:
[2021-12-14 08:49] LABS: Band Neutrophils % 1 % (0-10); Hypochromasia 1+ (None Seen); Lymphocytes % 7 % (15-49); Monocytes % (Manual) 3 % (1-12); Platelet Estimate NORMAL (Normal); RBC Morphology ABNORMAL (Normal); Segmented Neutrophils % 89 % (38-78)
[2021-12-14] MEDS: DEXAMETHASONE 4 MG TABLET PO SCH (08:50)
[2021-12-14] MEDS: ENOXAPARIN 40 MG/0.4 ML SYRINGE SQ SCH ×2 (08:51→20:01)
[2021-12-14] MEDS: DOCUSATE SODIUM 100 MG CAPSULE PO SCH ×2 (08:51→20:01)
[2021-12-14] MEDS: ASPIRIN 81 MG TAB.CHEW PO SCH (08:51)
[2021-12-14] MEDS: INSULIN LISPRO 1 UNIT/0.01 ML UNIT SQ SCH ×3 (11:26→20:20)
[2021-12-14] MEDS: BARICITINIB 2 MG TABLET PO SCH (14:20)
[2021-12-14] MEDS: REMDESIVIR 100 MG in 0.9 % SODIUM CHLORIDE 250 ML IV SCH (16:19)
[2021-12-15] MEDS: 0.9 % SODIUM CHLORIDE 10 ML SYRINGE IV SCH ×3 (06:43→21:50)
[2021-12-15] MEDS: INSULIN LISPRO 1 UNIT/0.01 ML UNIT SQ SCH ×4 (07:29→21:48)
[2021-12-15 07:33] LABS: ALT/SGPT 19 U/L (<40); AST/SGOT 34 U/L (<40); Albumin 3.4 gm/dL (3.2-5.2); Albumin/Globulin Ratio 1.1 (1.0-2.3); Alkaline Phosphatase 71 U/L (39-117); Bilirubin,Direct < 0.2 mg/dL (0-0.3); Bilirubin,Total 0.3 mg/dL (0.1-1.0); Blood Urea Nitrogen 37 mg/dL (8-23); Calcium 8.5 mg/dL (8.6-10.4); Carbon Dioxide 19 mmol/L (22-30); Chloride 99 mmol/L (96-108); Glomerular Filtration Rate 54; Glucose 139 mg/dL (70-105); Lactate Dehydrogenase 401 U/L (135-225); Phosphorous 2.9 mg/dL (2.5-4.5); Triglycerides 62 mg/dL (<150); Uric Acid 4.5 mg/dL (2.5-8.0)
[2021-12-15] MEDS ORDERED: VANCOMYCIN PER PHARMACY IV SCH (08:03)
--- NOTE | 2021-12-15 08:07 | Internal Med Progress Note ---
SUBJECTIVE Subjective Patient information: Note initiated : 12/15/21 at 8:01 am Service Date, if different from initiated Date: [] Patient: Mushtaq Demarco 86 y/o M admitted on 12/13/21 for SOB. altered mental. Chief Complaint: [] Interval history: History of present illness: Mr. Demarco is a 86 year old M Is a poor historian and most of history is obtained from the chart. Patient was brought in yesterday for weakness that has been increasing over the past week. Patient is unvaccinated for Covid. Is hypoxic in the ED and required 4 L of oxygen. He was found to be Covid positive. Patient remained stable in ER and had home oxygen and was discharged with follow-up. However patient presented back today with dyspnea. He was febrile and tachycardic in the ED. His oxygen saturations were 83% on at home on oxygen. Placed on a nonrebreather in the ED titrated down to 10 to 12 L oxygen mask. Chest x-ray with bilateral infiltrates. Mild leukocytosis although did get steroids yesterday in the ED. Also found to be hyponatremic. Renal function improved from yesterday. In the ED he was given dexamethasone. 12/14 Patient seems to be doing well today. On 4 to 6 L nasal cannula. No overnight event or new complaints. No leukocytosis today, no bandemia on yesterday lab. Concern for pneumonia on chest imaging and procalcitonin mildly elevated Hyponatremia resolved. 12/15 Patient was on 3 L and then with physical therapy then required increased oxygen needs after. Was placed on nonrebreather and tried to place heated high flow but patient pulled tubes out. Patient peers to have dementia. Renal function improved. Review of Systems: denies headache/fever/chills/nausea/vomiting/chest or abdominal pain/diarrhea. Otherwise see above. Constitutional Vitals: Vital Signs Temp Pulse Resp BP Pulse Ox 98.1 F 76 18 170/70 88 L 12/15/21 04:02 12/15/21 06:41 12/15/21 06:41 12/15/21 06:02 12/15/21 06:41 Period Temp Pulse Resp BP Sys/Echevarria Pulse Ox Last 24 Hr 96.5 F-98.1 F 62-88 11-21 114-170/53-116 88-97 Intake and Output 0212/15/21 12/15/21 21:59 05:59 13:59 Intake Total 250 355 Output Total 275 2099 Balance -25 1745 Weight 96.672 kg Intake & Output: Intake & Output 12/14/21 12/15/21 12/15/21 21:59 05:59 13:59 Intake Total 250 355 Output Total 275 2099 Balance -25 -1745 Weight 96.672 kg Intake: IV 250 Veklury 100 mg In Sodium 250 Chloride 0.9% 250 ml @ 500 mls/ hr IV Q24H [facility] Rx#:[id number] Oral 355 Output: Urine Catheter Amount 275 2100 Other: Urine Appearance Clear Clear Urine Color Dark Yellow Pale Exam: General: Alert, Awake, No acute Distress Eyes/N/T: EOMI,, Head/Neck: neck supple, CV: RRR, No murmurs, Pulm: mild Rales b/l but clearing, no wheezing Abd: soft, nontender, +BS x4 Ext: no clubbing/cyanosis, trace b/l LE edema Neuro: Alert, no focal deficits, moves all extremities, Skin: warm/dry Psych: flat affect OBJ DATA Labs CBC & Chem 7: 12/14/21 05:33 12/15/21 05:57 Labs: Abnormal Lab Results 12/15/21 12/15/21 12/15/21 05:57 05:57 05:57 WBC RBC Hgb Hct Seg Neutrophils % Lymphocytes % RBC Morphology Hypochromasia D-Dimer 1.77 H Sodium 131 L Carbon Dioxide 19 L BUN 37 H Creatinine Glucose 139 H Calcium 8.5 L Ferritin 1396.0 H Lactate Dehydrogenase 401 H C-Reactive Protein 7.10 H Albumin Procalcitonin Urine Protein Urine Occult Blood Other Casts Urine Mucus 12/14/21 12/14/21 12/14/21 05:33 05:33 05:33 WBC RBC 3.44 L Hgb 10.6 L Hct 32.7 L Seg Neutrophils % 89 H Lymphocytes % 7 L RBC Morphology Abnormal A Hypochromasia 1+ A D-Dimer Sodium Carbon Dioxide 18 L BUN 35 H Creatinine 1.5 H Glucose 154 H Calcium 8.3 L Ferritin Lactate Dehydrogenase 377 H C-Reactive Protein Albumin 3.0 L Procalcitonin 0.27 H Urine Protein Urine Occult Blood Other Casts Urine Mucus 12/13/21 12/13/21 12/13/21 18:40 17:45 17:45 WBC RBC Hgb Hct Seg Neutrophils % Lymphocytes % RBC Morphology Hypochromasia D-Dimer 3.88 H Sodium Carbon Dioxide BUN Creatinine Glucose Calcium Ferritin 1423.0 H Lactate Dehydrogenase C-Reactive Protein 7.40 H Albumin Procalcitonin Urine Protein 100 mg/dl A Urine Occult Blood Small A Other Casts Mod A Urine Mucus Mod A 12/13/21 12/13/21 12/13/21 17:45 17:45 17:45 WBC 11.8 H RBC 3.78 L Hgb 11.8 L Hct 35.6 L Seg Neutrophils % 95 H Lymphocytes % RBC Morphology Hypochromasia D-Dimer Sodium 130 L Carbon Dioxide 17 L BUN 33 H Creatinine 1.3 H Glucose 116 H Calcium Ferritin Lactate Dehydrogenase C-Reactive Protein Albumin Procalcitonin 0.22 H Urine Protein Urine Occult Blood Other Casts Urine Mucus Meds: Medications Acetaminophen (Acetaminophen 325 Mg Tablet) 650 mg PO Q6HP PRN; Protocol PRN Reason: Per Pain Protocol/Fever > 101 Last Admin: 12/13/21 22:56 Dose: 650 mg Documented by: Albuterol/Ipratropium (Ipratropium/Albuterol 3 Ml Ampul.Neb) 3 ml NEB Q4HP PRN PRN Reason: Shortness Of Breath Aspirin (Aspirin 81 Mg Tab.Chew) 81 mg PO DAILY [facility] Last Admin: 12/14/21 08:51 Dose: 81 mg Documented by: Dexamethasone (Dexamethasone 4 Mg Tablet) 6 mg PO DAILY [facility] Last Admin: 12/14/21 08:50 Dose: 6 mg Documented by: Dextrose (Dextrose 50% 50 Ml Vial) 0 ml IV UD PRN PRN Reason: Hypoglycemia Diagnostic Test (Pha) (Accu-Chek 1 Each Strip) 1 each FS ACHS [facility] Last Admin: 12/15/21 07:29 Dose: 1 each Documented by: Docusate Sodium (Docusate Sodium 100 Mg Capsule) 100 mg PO BID [facility] Last Admin: 12/14/21 20:01 Dose: 100 mg Documented by: Enoxaparin Sodium (Enoxaparin 40 Mg/0.4 Ml Syringe) 40 mg SQ BID [facility] Last Admin: 12/14/21 20:01 Dose: 40 mg Documented by: Glucose (Dextrose 31 Gm Oral.Susp) 15 gm PO PRN PRN PRN Reason: Hypoglycemia Potassium Chloride 40 meq/ (Dextrose) 520 mls @ 130 mls/hr IV UD PRN PRN Reason: Potassium < 3 Magnesium Sulfate (Magnesium Sulfate) 2 gm in 50 mls @ 50 mls/hr IV UD PRN PRN Reason: Magnesium </= 1.6 REMDESIVIR 100 mg/ Sodium (Chloride) 250 mls @ 500 mls/hr IV Q24H [facility] Stop: 12/17/21 16:29 Last Infusion: 12/14/21 16:39 Dose: Infused Documented by: Insulin Human Lispro (Insulin Lispro 1 Unit/0.01 Ml Unit) 0 unit SQ ACHS [facility]; Protocol Last Admin: 12/15/21 07:29 Dose: Not Given Documented by: Ondansetron HCl (Ondansetron 4 Mg/2 Ml Vial) 4 mg IV Q4HP PRN PRN Reason: Nausea And Vomiting Polyethylene Glycol (Polyethylene Glycol 3350 17 Gm Packet) 17 gm PO DAILYP PRN PRN Reason: Constipation Potassium Chloride (Potassium Chloride 20 Meq Tablet) 40 meq PO UD PRN PRN Reason: Potssium is 3-3.5 Potassium Chloride (Potassium Chloride 20 Meq Tablet) 40 meq PO UD PRN PRN Reason: Potassium < 3 Senna (Sennosides 1 Tablet) 2 tab PO DAILYP PRN PRN Reason: Constipation Sodium Chloride (0.9 % Sodium Chloride 10 Ml Syringe) 10 ml IV Q8 [facility] Last Admin: 12/15/21 06:43 Dose: 10 ml Documented by: A/P Narrative A/P Narrative: A: *Covid PNA w/ARDS & concern for bacterial coinfection: -not vaccinated -leukocytosis resovled *Acute hypoxic respiratory failure: 2/2 above -down to 3-5L NC. No PE *Hyponatremia: improved *Metabolic acidosis: improving *1/4 bottles BC with GPC: contaminant vs infectious *CKD III: *Anemia, chronic: *CAD w/CABG: has statin but don't see ASA on home meds *HTN: *Urinary retention: Patient straight caths at home, kimbrough in ED *DM: a1c 5.6 *Suspect underlying Dementia: P: -Remdesivir/dexamethasone/Baricit -IS/Acapella, prn Nebs, RT -O2 supplementation with HFNC, wean as able -Proning/mobilization/OOB to chair -rocephin, vanco pending final BC -prn lasix -cont ACEI/BB -started ASA, cont statin -SSI -pt/ot -ppx: lovenox bid Time Spent With Patient Time: Total time spent is greater than 50% in coordination of care (as documented) at patient's floor/unit and/or counseling patient:
[2021-12-15] MEDS ORDERED: LORazepam 2 MG/ML VIAL IV ONE (09:10)
[2021-12-15] MEDS: SODIUM BICARBONATE 650 MG TABLET PO SCH ×3 (09:11→21:49)
[2021-12-15] MEDS: METOPROLOL TARTRATE 25 MG TABLET PO SCH ×2 (09:11→21:49)
[2021-12-15] MEDS: BARICITINIB 2 MG TABLET PO SCH (09:11)
[2021-12-15] MEDS: ENOXAPARIN 40 MG/0.4 ML SYRINGE SQ SCH ×2 (09:11→21:49)
[2021-12-15] MEDS: DEXAMETHASONE 4 MG TABLET PO SCH (09:12)
[2021-12-15] MEDS: ASPIRIN 81 MG TAB.CHEW PO SCH (09:12)
[2021-12-15] MEDS: DOCUSATE SODIUM 100 MG CAPSULE PO SCH ×2 (09:12→21:48)
[2021-12-15] MEDS: cefTRIAXone 2 GM in DEXTROSE 5% IN WATER 50 ML IV SCH (09:12)
[2021-12-15] MEDS: VITAMIN D3 25 MCG TABLET PO SCH ×2 (09:12→21:50)
[2021-12-15] MEDS: LISINOPRIL 2.5 MG TABLET PO SCH ×2 (09:12→21:50)
[2021-12-15] MEDS: ALLOPURINOL 100 MG TABLET PO SCH ×2 (09:12→21:50)
[2021-12-15] MEDS ORDERED: VANCOMYCIN 1,500 MG in 0.9 % SODIUM CHLORIDE 500 ML IV SCH (10:00)
[2021-12-15] MEDS ORDERED: FUROSEMIDE 40 MG/4 ML VIAL IV ONE (10:35)
[2021-12-15] MEDS: REMDESIVIR 100 MG in 0.9 % SODIUM CHLORIDE 250 ML IV SCH (15:53)
[2021-12-15] MEDS: OLANZapine 5 MG TABLET PO PRN (15:53)
--- NOTE | 2021-12-15 21:11 | EKG ---
[facility] Test Date: 2021-12-13 Pat Name: Mushtaq Demarco Department: ICU Room: 120B Gender: Male Credit Administration Specialist: IRENA : [id number] Requested By: Leena Gimenez Order Number: [id number] Reading MD: Dimitri Santana D.O. Measurements Intervals [place] Rate: 116 P: 248 CA: 206 QRS: -27 QRSD: 94 T: 89 QT: 323 QTc: 449 Interpretive Statements Sinus tachycardia with 1st degree AVB Dropped beat Left axis deviation Abnormal R-wave progression, late transition Electronically Signed On 12-15-2021 21:11:07 PST by Dimitri Santana D.O. /[email or web address]/[id number]/[id number]
[2021-12-15] MEDS: SIMVASTATIN 20 MG TABLET PO SCH (21:50)
[2021-12-16] MEDS: OLANZapine 5 MG TABLET PO PRN ×4 (03:10→21:55)
[2021-12-16] MEDS: 0.9 % SODIUM CHLORIDE 10 ML SYRINGE IV SCH ×3 (05:38→21:01)
[2021-12-16] MEDS: ACETAMINOPHEN 325 MG TABLET PO PRN ×2 (07:30→20:59)
--- NOTE | 2021-12-16 07:45 | XRay Report ---
INDICATION: f/u infiltrates TECHNIQUE: AP portable semiupright chest x-ray COMPARISON: Previous chest x-rays dated 12/13/2021, 12/12/2021, 12/01/2021 FINDINGS: Lungs:Bilateral pulmonary parenchymal infiltrates consistent with covid pneumonia. Infiltrates are improved since 12/13/2021 Heart, vascular:No significant cardiomegaly. Pulmonary vascularity is normal. No pulmonary edema or pulmonary congestion Mediastinum, kosta:No mediastinal widening. No hilar mass Pleura:No pleural fluid. No pleural-based mass or calcification Skeletal:Previous median sternotomy IMPRESSION: Improved infiltrates Interpreted and Authenticated by: Edd Novoa 12/16/21
--- NOTE | 2021-12-16 07:52 | Internal Med Progress Note ---
SUBJECTIVE Subjective Patient information: Note initiated : 12/16/21 at 7:49 am Service Date, if different from initiated Date: [] Patient: Mushtaq Demarco 86 y/o M admitted on 12/13/21 for SOB. altered mental. Chief Complaint: [] Interval history: History of present illness: Mr. Demarco is a 86 year old M Is a poor historian and most of history is obtained from the chart. Patient was brought in yesterday for weakness that has been increasing over the past week. Patient is unvaccinated for Covid. Is hypoxic in the ED and required 4 L of oxygen. He was found to be Covid positive. Patient remained stable in ER and had home oxygen and was discharged with follow-up. However patient presented back today with dyspnea. He was febrile and tachycardic in the ED. His oxygen saturations were 83% on at home on oxygen. Placed on a nonrebreather in the ED titrated down to 10 to 12 L oxygen mask. Chest x-ray with bilateral infiltrates. Mild leukocytosis although did get steroids yesterday in the ED. Also found to be hyponatremic. Renal function improved from yesterday. In the ED he was given dexamethasone. 12/14 Patient seems to be doing well today. On 4 to 6 L nasal cannula. No overnight event or new complaints. No leukocytosis today, no bandemia on yesterday lab. Concern for pneumonia on chest imaging and procalcitonin mildly elevated Hyponatremia resolved. 12/15 Patient was on 3 L and then with physical therapy then required increased oxygen needs after. Was placed on nonrebreather and tried to place heated high flow but patient pulled tubes out. Patient peers to have dementia. Renal function improved. 12/16 Was on a nonrebreather for a while after physical therapy yesterday. Now down to 5 and 6 L. Review of Systems: denies headache/fever/chills/nausea/vomiting/chest or abdominal pain/diarrhea. Otherwise see above. Constitutional Vitals: Vital Signs Temp Pulse Resp BP Pulse Ox 97.6 F 85 20 149/69 90 12/16/21 04:01 12/16/21 04:01 12/16/21 04:01 12/16/21 04:01 12/16/21 04:01 Period Temp Pulse Resp BP Sys/Echevarria Pulse Ox Last 24 Hr 97 F-98.1 F 67-96 15-27 117-166/57-97 87-96 Intake and Output 12/15/21 12/16/21 12/16/21 21:59 05:59 13:59 Intake Total 605 300 Output Total 1325 1050 Balance -720 -750 Weight 94.999 kg Intake & Output: Intake & Output 12/15/21 12/16/21 12/16/21 21:59 05:59 13:59 Intake Total 605 300 Output Total 1325 1050 Balance -720 -750 Weight 94.999 kg Intake: IV 250 Veklury 100 mg In Sodium 250 Chloride 0.9% 250 ml @ 500 mls/ hr IV Q24H [facility] Rx#:[id number] Oral 355 300 Output: Urine Catheter Amount 1325 1050 Other: Meal Dinner Percent of Meal Consumed 100% Feeding Ability Independent Urine Appearance Clear Clear Uretheral (Kimbrough) Clear Urine Color Pale Pale Uretheral (Kimbrough) Pale Urine Odor Normal # Bowel Movements 0 Exam: General: Alert, Awake, No acute Distress Eyes/N/T: EOMI,, Head/Neck: neck supple, CV: RRR, No murmurs, Pulm: mild Rales b/l clearing, no wheezing Abd: soft, nontender, +BS x4 Ext: no clubbing/cyanosis, trace b/l LE edema Neuro: Alert, no focal deficits, moves all extremities, Skin: warm/dry Psych: flat affect OBJ DATA Labs CBC & Chem 7: 12/14/21 05:33 12/16/21 05:18 Labs: Abnormal Lab Results 12/15/21 12/15/21 12/15/21 05:57 05:57 05:57 WBC RBC Hgb Hct Seg Neutrophils % Lymphocytes % RBC Morphology Hypochromasia D-Dimer 1.77 H Sodium 131 L Carbon Dioxide 19 L BUN 37 H Creatinine Glucose 139 H Calcium 8.5 L Ferritin 1396.0 H Lactate Dehydrogenase 401 H C-Reactive Protein 7.10 H Albumin Procalcitonin Urine Protein Urine Occult Blood Other Casts Urine Mucus 12/14/21 12/14/21 12/14/21 05:33 05:33 05:33 WBC RBC 3.44 L Hgb 10.6 L Hct 32.7 L Seg Neutrophils % 89 H Lymphocytes % 7 L RBC Morphology Abnormal A Hypochromasia 1+ A D-Dimer Sodium Carbon Dioxide 18 L BUN 35 H Creatinine 1.5 H Glucose 154 H Calcium 8.3 L Ferritin Lactate Dehydrogenase 377 H C-Reactive Protein Albumin 3.0 L Procalcitonin 0.27 H Urine Protein Urine Occult Blood Other Casts Urine Mucus 12/13/21 12/13/21 12/13/21 18:40 17:45 17:45 WBC RBC Hgb Hct Seg Neutrophils % Lymphocytes % RBC Morphology Hypochromasia D-Dimer 3.88 H Sodium Carbon Dioxide BUN Creatinine Glucose Calcium Ferritin 1423.0 H Lactate Dehydrogenase C-Reactive Protein 7.40 H Albumin Procalcitonin Urine Protein 100 mg/dl A Urine Occult Blood Small A Other Casts Mod A Urine Mucus Mod A 12/13/21 12/13/21 12/13/21 17:45 17:45 17:45 WBC 11.8 H RBC 3.78 L Hgb 11.8 L Hct 35.6 L Seg Neutrophils % 95 H Lymphocytes % RBC Morphology Hypochromasia D-Dimer Sodium 130 L Carbon Dioxide 17 L BUN 33 H Creatinine 1.3 H Glucose 116 H Calcium Ferritin Lactate Dehydrogenase C-Reactive Protein Albumin Procalcitonin 0.22 H Urine Protein Urine Occult Blood Other Casts Urine Mucus Meds: Medications Acetaminophen (Acetaminophen 325 Mg Tablet) 650 mg PO Q6HP PRN; Protocol PRN Reason: Per Pain Protocol/Fever > 101 Last Admin: 12/16/21 07:30 Dose: 650 mg Documented by: Albuterol/Ipratropium (Ipratropium/Albuterol 3 Ml Ampul.Neb) 3 ml NEB Q4HP PRN PRN Reason: Shortness Of Breath Allopurinol (Allopurinol 100 Mg Tablet) 100 mg PO BID [facility] [place] Last Admin: 12/15/21 21:50 Dose: 100 mg Documented by: Aspirin (Aspirin 81 Mg Tab.Chew) 81 mg PO DAILY [facility] [place] Last Admin: 12/15/21 09:12 Dose: 81 mg Documented by: Dexamethasone (Dexamethasone 4 Mg Tablet) 6 mg PO DAILY [facility] Last Admin: 12/15/21 09:12 Dose: 6 mg Documented by: Dextrose (Dextrose 50% 50 Ml Vial) 0 ml IV UD PRN PRN Reason: Hypoglycemia Diagnostic Test (Pha) (Accu-Chek 1 Each Strip) 1 each FS ACHS [facility] [place] Last Admin: 12/15/21 21:48 Dose: 1 each Documented by: Docusate Sodium (Docusate Sodium 100 Mg Capsule) 100 mg PO BID [facility] [place] Last Admin: 12/15/21 21:48 Dose: 100 mg Documented by: Enoxaparin Sodium (Enoxaparin 40 Mg/0.4 Ml Syringe) 40 mg SQ BID [facility] [place] Last Admin: 12/15/21 21:49 Dose: 40 mg Documented by: Glucose (Dextrose 31 Gm Oral.Susp) 15 gm PO PRN PRN PRN Reason: Hypoglycemia Potassium Chloride 40 meq/ (Dextrose) 520 mls @ 130 mls/hr IV UD PRN PRN Reason: Potassium < 3 Magnesium Sulfate (Magnesium Sulfate) 2 gm in 50 mls @ 50 mls/hr IV UD PRN PRN Reason: Magnesium </= 1.6 REMDESIVIR 100 mg/ Sodium (Chloride) 250 mls @ 500 mls/hr IV Q24H [facility] [place] Stop: 12/17/21 16:29 Last Infusion: 12/15/21 16:23 Dose: Infused Documented by: Ceftriaxone Sodium 2 gm/ (Dextrose) 50 mls @ 100 mls/hr IV Q24H [facility] [place]; Protocol Last Infusion: 12/15/21 09:42 Dose: Infused Documented by: Insulin Human Lispro (Insulin Lispro 1 Unit/0.01 Ml Unit) [address] [facility]; Protocol Last Admin: 12/15/21 21:48 Dose: 2 units Documented by: Lisinopril (Lisinopril 2.5 Mg Tablet) 2.5 mg PO BID [facility] [place] Last Admin: 12/15/21 21:50 Dose: 2.5 mg Documented by: Metoprolol Tartrate (Metoprolol Tartrate 25 Mg Tablet) 25 mg PO BID [facility] [place] Last Admin: 12/15/21 21:49 Dose: 25 mg Documented by: Olanzapine (Olanzapine 5 Mg Tablet) 5 mg PO Q6HP PRN PRN Reason: Agitation Last Admin: 12/16/21 03:10 Dose: 5 mg Documented by: Ondansetron HCl (Ondansetron 4 Mg/2 Ml Vial) 4 mg IV Q4HP PRN PRN Reason: Nausea And Vomiting Polyethylene Glycol (Polyethylene Glycol 3350 17 Gm Packet) 17 gm PO DAILYP PRN PRN Reason: Constipation Potassium Chloride (Potassium Chloride 20 Meq Tablet) 40 meq PO UD PRN PRN Reason: Potssium is 3-3.5 Potassium Chloride (Potassium Chloride 20 Meq Tablet) 40 meq PO UD PRN PRN Reason: Potassium < 3 Senna (Sennosides 1 Tablet) 2 tab PO DAILYP PRN PRN Reason: Constipation Simvastatin (Simvastatin 20 Mg Tablet) 20 mg PO QPM [facility] [place] Last Admin: 12/15/21 21:50 Dose: 20 mg Documented by: Sodium Chloride (0.9 % Sodium Chloride 10 Ml Syringe) 10 ml IV Q8 [facility] [place] Last Admin: 12/16/21 05:38 Dose: 10 ml Documented by: Vitamin D (Vitamin D3 25 Mcg Tablet) 50 mcg PO BID [facility] [place] Last Admin: 12/15/21 21:50 Dose: 50 mcg Documented by: A/P Narrative A/P Narrative: A: *Covid PNA w/ARDS & concern for bacterial coinfection: -not vaccinated -leukocytosis resovled -Inflammatory markers improving. Procalcitonin improving *Acute hypoxic respiratory failure: 2/2 above -back down to 3-5L NC. No PE *Hyponatremia: improved *Metabolic acidosis: improving *CKD III: *Anemia, chronic: *CAD w/CABG: has statin but don't see ASA on home meds *HTN: *Urinary retention: Patient straight caths at home, kimbrough in ED *DM: a1c 5.6 *Suspect underlying Dementia: P: -Remdesivir/dexamethasone/Baricit -IS/Acapella, prn Nebs, RT -O2 supplementation -Proning/mobilization/OOB to chair -rocephin -prn lasix -cont ACEI/BB -started ASA, cont statin -SSI -pt/ot -ppx: lovenox bid Time Spent With Patient Time: Total time spent is greater than 50% in coordination of care (as documented) at patient's floor/unit and/or counseling patient:
[2021-12-16] MEDS: INSULIN LISPRO 1 UNIT/0.01 ML UNIT SQ SCH ×4 (07:55→21:15)
[2021-12-16] MEDS: ENOXAPARIN 40 MG/0.4 ML SYRINGE SQ SCH ×2 (08:38→21:00)
[2021-12-16] MEDS: cefTRIAXone 2 GM in DEXTROSE 5% IN WATER 50 ML IV SCH (08:39)
[2021-12-16] MEDS: ASPIRIN 81 MG TAB.CHEW PO SCH (08:39)
[2021-12-16] MEDS: DEXAMETHASONE 4 MG TABLET PO SCH (08:39)
[2021-12-16] MEDS: DOCUSATE SODIUM 100 MG CAPSULE PO SCH ×2 (08:39→20:59)
[2021-12-16] MEDS: METOPROLOL TARTRATE 25 MG TABLET PO SCH ×2 (08:39→21:00)
[2021-12-16] MEDS: VITAMIN D3 25 MCG TABLET PO SCH ×2 (08:39→21:00)
[2021-12-16] MEDS: ALLOPURINOL 100 MG TABLET PO SCH ×2 (08:39→21:00)
[2021-12-16] MEDS: LISINOPRIL 2.5 MG TABLET PO SCH ×2 (08:44→20:59)
[2021-12-16 09:08] LABS: Blood Urea Nitrogen 40 mg/dL (8-23); Carbon Dioxide 20 mmol/L (22-30); Chloride 102 mmol/L (96-108); Glomerular Filtration Rate 54; Glucose 136 mg/dL (70-105)
[2021-12-16] MEDS: BARICITINIB 2 MG TABLET PO SCH (10:38)
--- NOTE | 2021-12-16 12:33 | Internal Med Progress Note ---
SUBJECTIVE Subjective Patient information: Note initiated : 12/17/21 at 12:31 pm Service Date, if different from initiated Date: [] Patient: Mushtaq Demarco a 86 y/o M admitted on 12/13/21 for SOB. altered mental. Chief Complaint: [] Interval history: History of present illness: Mr. Demarco is a 86 year old M Is a poor historian and most of history is obtained from the chart. Patient was brought in yesterday for weakness that has been increasing over the past week. Patient is unvaccinated for Covid. Is hypoxic in the ED and required 4 L of oxygen. He was found to be Covid positive. Patient remained stable in ER and had home oxygen and was discharged with follow-up. However patient presented back today with dyspnea. He was febrile and tachycardic in the ED. His oxygen saturations were 83% on at home on oxygen. Placed on a nonrebreather in the ED titrated down to 10 to 12 L oxygen mask. Chest x-ray with bilateral infiltrates. Mild leukocytosis although did get steroids yesterday in the ED. Also found to be hyponatremic. Renal function improved from yesterday. In the ED he was given dexamethasone. 12/14 Patient seems to be doing well today. On 4 to 6 L nasal cannula. No overnight event or new complaints. No leukocytosis today, no bandemia on yesterday lab. Concern for pneumonia on chest imaging and procalcitonin mildly elevated Hyponatremia resolved. 12/15 Patient was on 3 L and then with physical therapy then required increased oxygen needs after. Was placed on nonrebreather and tried to place heated high flow but patient pulled tubes out. Patient peers to have dementia. Renal function improved. 12/16 Was on a nonrebreather for a while after physical therapy yesterday. Now down to 5 and 6 L. 12/17 Improved oxygen requirement, down to 3 L/min. Was agitated last night, started precedex however discontinued after the patient developed hypotension. Zyprexa IM given with some effect however EKG showed prolonged QTc. Discussed agitation management with family, options are restraints or prn benzodiazepines given the QT prolongation. Family felt that Ativan was work better as restraints would likely worsen agitation as the patient does not like to be restrained. Family says the patient has had intermittent agitation at home recently. Started low dose ativan IV prn for severe agitation. Chest xray stable. Physical exam Head: Atraumatic, normal inspection. Eyes: normal appearance, no scleral icterus. Neck: full ROM Respiratory: no respiratory distress. Cardiovascular: normal rate and rhythm, S1, S2. GI/Abdominal: soft, nontender, no guarding. Extremities: full range of motion, nontender. Neurological: CN II-XII intact, intact motor, intact sensation. Psychiatric: normal mood, impaired cognition Skin: warm, normal color Constitutional Vitals: Vital Signs Temp Pulse Resp BP Pulse Ox 97.5 F 95 H 19 119/48 92 12/16/21 12:26 12/16/21 12:29 12/16/21 12:29 12/16/21 12:26 12/16/21 12:29 Period Temp Pulse Resp BP Sys/Echevarria Pulse Ox Last 24 Hr 97.1 F-98.1 F 67-105 17-27 115-157/48-97 89-97 Intake and Output 12/15/21 12/16/21 12/16/21 21:59 05:59 13:59 Intake Total 605 300 Output Total 1325 1050 250 Balance -720 -750 -250 Weight 94.999 kg Intake & Output: Intake & Output 12/15/21 12/16/21 12/16/21 21:59 05:59 13:59 Intake Total 605 300 Output Total 1325 1050 250 Balance -720 -750 -250 Weight 94.999 kg Intake: IV 250 Veklury 100 mg In Sodium 250 Chloride 0.9% 250 ml @ 500 mls/ hr IV Q24H [facility] Rx#:[id number] Oral 355 300 Output: Urine Catheter Amount 1325 1050 250 Other: Meal Dinner Percent of Meal Consumed 100% Feeding Ability Independent Urine Appearance Clear Clear Clear Uretheral (Kimbrough) Clear Urine Color Pale Pale Dark Yellow Uretheral (Kimbrough) Pale Urine Odor Normal # Bowel Movements 0 OBJ DATA Labs CBC & Chem 7: 12/14/21 05:33 12/17/21 05:25 Labs: Abnormal Lab Results 12/16/21 12/16/21 12/16/21 05:18 05:18 05:18 WBC RBC Hgb Hct Seg Neutrophils % Lymphocytes % RBC Morphology Hypochromasia D-Dimer Sodium Carbon Dioxide 20 L Anion Gap 17.0 H BUN 40 H Creatinine Glucose 136 H Calcium Ferritin 1385.0 H Lactate Dehydrogenase C-Reactive Protein Albumin Procalcitonin 0.12 H Urine Protein Urine Occult Blood Other Casts Urine Mucus 12/16/21 12/15/21 12/15/21 05:18 05:57 05:57 WBC RBC Hgb Hct Seg Neutrophils % Lymphocytes % RBC Morphology Hypochromasia D-Dimer Sodium 131 L Carbon Dioxide 19 L Anion Gap BUN 37 H Creatinine Glucose 139 H Calcium 8.5 L Ferritin 1396.0 H Lactate Dehydrogenase 401 H C-Reactive Protein 4.30 H 7.10 H Albumin Procalcitonin Urine Protein Urine Occult Blood Other Casts Urine Mucus 12/15/21 12/14/21 12/14/21 05:57 05:33 05:33 WBC RBC Hgb Hct Seg Neutrophils % Lymphocytes % RBC Morphology Hypochromasia D-Dimer 1.77 H Sodium Carbon Dioxide 18 L Anion Gap BUN 35 H Creatinine 1.5 H Glucose 154 H Calcium 8.3 L Ferritin Lactate Dehydrogenase 377 H C-Reactive Protein Albumin 3.0 L Procalcitonin 0.27 H Urine Protein Urine Occult Blood Other Casts Urine Mucus 12/14/21 12/13/21 12/13/21 05:33 18:40 17:45 WBC RBC 3.44 L Hgb 10.6 L Hct 32.7 L Seg Neutrophils % 89 H Lymphocytes % 7 L RBC Morphology Abnormal A Hypochromasia 1+ A D-Dimer Sodium Carbon Dioxide Anion Gap BUN Creatinine Glucose Calcium Ferritin 1423.0 H Lactate Dehydrogenase C-Reactive Protein 7.40 H Albumin Procalcitonin Urine Protein 100 mg/dl A Urine Occult Blood Small A Other Casts Mod A Urine Mucus Mod A 12/13/21 12/13/21 12/13/21 17:45 17:45 17:45 WBC RBC Hgb Hct Seg Neutrophils % Lymphocytes % RBC Morphology Hypochromasia D-Dimer 3.88 H Sodium 130 L Carbon Dioxide 17 L Anion Gap BUN 33 H Creatinine 1.3 H Glucose 116 H Calcium Ferritin Lactate Dehydrogenase C-Reactive Protein Albumin Procalcitonin 0.22 H Urine Protein Urine Occult Blood Other Casts Urine Mucus 12/13/21 17:45 WBC 11.8 H RBC 3.78 L Hgb 11.8 L Hct 35.6 L Seg Neutrophils % 95 H Lymphocytes % RBC Morphology Hypochromasia D-Dimer Sodium Carbon Dioxide Anion Gap BUN Creatinine Glucose Calcium Ferritin Lactate Dehydrogenase C-Reactive Protein Albumin Procalcitonin Urine Protein Urine Occult Blood Other Casts Urine Mucus Meds: Medications Acetaminophen (Acetaminophen 325 Mg Tablet) 650 mg PO Q6HP PRN; Protocol PRN Reason: Per Pain Protocol/Fever > 101 Last Admin: 12/16/21 07:30 Dose: 650 mg Documented by: Albuterol/Ipratropium (Ipratropium/Albuterol 3 Ml Ampul.Neb) 3 ml NEB Q4HP PRN PRN Reason: Shortness Of Breath Allopurinol (Allopurinol 100 Mg Tablet) 100 mg PO BID [facility] Last Admin: 12/16/21 08:39 Dose: 100 mg Documented by: Aspirin (Aspirin 81 Mg Tab.Chew) 81 mg PO DAILY [facility] Last Admin: 12/16/21 08:39 Dose: 81 mg Documented by: Dexamethasone (Dexamethasone 4 Mg Tablet) 6 mg PO DAILY [facility] Last Admin: 12/16/21 08:39 Dose: 6 mg Documented by: Dextrose (Dextrose 50% 50 Ml Vial) 0 ml IV UD PRN PRN Reason: Hypoglycemia Diagnostic Test (Pha) (Accu-Chek 1 Each Strip) 1 each FS ACHS [facility] Last Admin: 12/16/21 07:55 Dose: 1 each Documented by: Docusate Sodium (Docusate Sodium 100 Mg Capsule) 100 mg PO BID [facility] Last Admin: 12/16/21 08:39 Dose: 100 mg Documented by: Enoxaparin Sodium (Enoxaparin 40 Mg/0.4 Ml Syringe) 40 mg SQ BID [facility] Last Admin: 12/16/21 08:38 Dose: 40 mg Documented by: Glucose (Dextrose 31 Gm Oral.Susp) 15 gm PO PRN PRN PRN Reason: Hypoglycemia Potassium Chloride 40 meq/ (Dextrose) 520 mls @ 130 mls/hr IV UD PRN PRN Reason: Potassium < 3 Magnesium Sulfate (Magnesium Sulfate) 2 gm in 50 mls @ 50 mls/hr IV UD PRN PRN Reason: Magnesium </= 1.6 REMDESIVIR 100 mg/ Sodium (Chloride) 250 mls @ 500 mls/hr IV Q24H [facility] Stop: 12/17/21 16:29 Last Infusion: 12/15/21 16:23 Dose: Infused Documented by: Ceftriaxone Sodium 2 gm/ (Dextrose) 50 mls @ 100 mls/hr IV Q24H [facility]; Protocol Last Admin: 12/16/21 08:39 Dose: 100 mls/hr Documented by: Insulin Human Lispro (Insulin Lispro 1 Unit/0.01 Ml Unit) 0 unit SQ ACHS [facility]; Protocol Last Admin: 12/16/21 07:55 Dose: Not Given Documented by: Lisinopril (Lisinopril 2.5 Mg Tablet) 2.5 mg PO BID [facility] Last Admin: 12/16/21 08:44 Dose: 2.5 mg Documented by: Metoprolol Tartrate (Metoprolol Tartrate 25 Mg Tablet) 25 mg PO BID [facility] Last Admin: 12/16/21 08:39 Dose: 25 mg Documented by: Olanzapine (Olanzapine 5 Mg Tablet) 5 mg PO Q6HP PRN PRN Reason: Agitation Last Admin: 12/16/21 12:25 Dose: 5 mg Documented by: Ondansetron HCl (Ondansetron 4 Mg/2 Ml Vial) 4 mg IV Q4HP PRN PRN Reason: Nausea And Vomiting Polyethylene Glycol (Polyethylene Glycol 3350 17 Gm Packet) 17 gm PO DAILYP PRN PRN Reason: Constipation Potassium Chloride (Potassium Chloride 20 Meq Tablet) 40 meq PO UD PRN PRN Reason: Potssium is 3-3.5 Potassium Chloride (Potassium Chloride 20 Meq Tablet) 40 meq PO UD PRN PRN Reason: Potassium < 3 Senna (Sennosides 1 Tablet) 2 tab PO DAILYP PRN PRN Reason: Constipation Simvastatin (Simvastatin 20 Mg Tablet) 20 mg PO QPM [facility] Last Admin: 12/15/21 21:50 Dose: 20 mg Documented by: Sodium Chloride (0.9 % Sodium Chloride 10 Ml Syringe) 10 ml IV Q8 [facility] Last Admin: 12/16/21 05:38 Dose: 10 ml Documented by: Vitamin D (Vitamin D3 25 Mcg Tablet) 50 mcg PO BID [facility] Last Admin: 12/16/21 08:39 Dose: 50 mcg Documented by: A/P Narrative A/P Narrative: A: *Covid PNA w/ARDS & concern for bacterial coinfection: -not vaccinated -leukocytosis resolved -Inflammatory markers improving. Procalcitonin improving *Acute hypoxic respiratory failure: 2/2 above -back down to 3-5L NC. No PE *Intermittent agitation *Prolonged QTc *Resolved hyponatremia *Metabolic acidosis: improving *CKD III: *Anemia, chronic: *CAD w/CABG: has statin but didn't see ASA on home meds *HTN: *Urinary retention: Patient straight caths at home, kimbrough in ED *DM: a1c 5.6 *Suspect underlying Dementia: P: -Remdesivir/dexamethasone/Baricit -IS/Acapella, prn Nebs, RT -O2 supplementation -Proning/mobilization/OOB to chair -rocephin -ativan IV prn for agitation -prn lasix -cont ACEI/BB -started ASA, cont statin -SSI -pt/ot -remove kimbrough when able -ppx: lovenox bid Time Spent With Patient Time: Total time spent is greater than 50% in coordination of care (as documented) at patient's floor/unit and/or counseling patient:
[2021-12-16] MEDS: REMDESIVIR 100 MG in 0.9 % SODIUM CHLORIDE 250 ML IV SCH (16:19)
[2021-12-16] MEDS: SIMVASTATIN 20 MG TABLET PO SCH (21:00)
[2021-12-16] MEDS: 0.9 % SODIUM CHLORIDE 250 ML IV SCH (22:40)
[2021-12-16] MEDS ORDERED: DEXMEDETOMIDINE 100 ML IV ONE (22:41)
[2021-12-16] MEDS ORDERED: DEXMEDETOMIDINE 400 MCG in PREMIX 1 BAG IV SCH (22:45)
[2021-12-17] MEDS ORDERED: OLANZapine 10 MG VIAL IM PRN ×2 (00:11→01:40)
[2021-12-17] MEDS ORDERED: OLANZapine 10 MG VIAL IM ONE (00:45)
[2021-12-17] MEDS: 0.9 % SODIUM CHLORIDE 10 ML SYRINGE IV SCH ×4 (03:26→20:16)
[2021-12-17 06:50] LABS: Blood Urea Nitrogen 49 mg/dL (8-23); Calcium 8.4 mg/dL (8.6-10.4); Carbon Dioxide 21 mmol/L (22-30); Chloride 106 mmol/L (96-108); Glomerular Filtration Rate 49; Glucose 125 mg/dL (70-105)
[2021-12-17] MEDS: INSULIN LISPRO 1 UNIT/0.01 ML UNIT SQ SCH ×4 (09:13→21:02)
[2021-12-17] MEDS: cefTRIAXone 2 GM in DEXTROSE 5% IN WATER 50 ML IV SCH (10:36)
--- NOTE | 2021-12-17 10:51 | XRay Report ---
INDICATION: f/u covid. heart rhythm changes TECHNIQUE: AP portable upright chest x-ray COMPARISON: Previous chest x-rays dated 12/13/2021, 12/12/2021, 12/01/2021. Previous chest CT scan dated 12/13/2021. FINDINGS: Lungs:Infiltrates are essentially unchanged since 12/16/2021 but improved since 12/13/2021. No new abnormality. Heart, vascular:No significant cardiomegaly. Pulmonary vascularity is normal. No pulmonary edema or pulmonary congestion. Previous median sternotomy and probable coronary artery bypass procedure Mediastinum, kosta:No mediastinal widening. No hilar mass Pleura:No pleural fluid. No pleural-based mass or calcification Skeletal:Negative. IMPRESSION: No significant interval change since 12/16/2021 Interpreted and Authenticated by: Edd Novoa 12/17/21
[2021-12-17 11:02] LABS: Phosphorous 3.9 mg/dL (2.5-4.5)
[2021-12-17] MEDS: ENOXAPARIN 40 MG/0.4 ML SYRINGE SQ SCH ×2 (12:07→20:46)
[2021-12-17] MEDS: ASPIRIN 81 MG TAB.CHEW PO SCH (14:52)
[2021-12-17] MEDS: DOCUSATE SODIUM 100 MG CAPSULE PO SCH ×2 (14:53→20:17)
[2021-12-17] MEDS: DEXAMETHASONE 4 MG TABLET PO SCH (14:54)
[2021-12-17] MEDS: METOPROLOL TARTRATE 25 MG TABLET PO SCH ×2 (14:55→20:17)
[2021-12-17] MEDS: VITAMIN D3 25 MCG TABLET PO SCH ×2 (14:57→20:16)
[2021-12-17] MEDS: ALLOPURINOL 100 MG TABLET PO SCH ×2 (15:00→20:17)
[2021-12-17] MEDS: 0.9 % SODIUM CHLORIDE 250 ML IV SCH (15:05)
[2021-12-17] MEDS: BARICITINIB 2 MG TABLET PO SCH (15:10)
[2021-12-17] MEDS: LISINOPRIL 2.5 MG TABLET PO SCH ×2 (15:11→20:16)
[2021-12-17] MEDS: REMDESIVIR 100 MG in 0.9 % SODIUM CHLORIDE 250 ML IV SCH (16:35)
[2021-12-17] MEDS ORDERED: DEXAMETHASONE 10 MG/ML VIAL IV ONE (17:13)
[2021-12-17] MEDS: LORazepam 2 MG/ML VIAL IV PRN (20:16)
[2021-12-17] MEDS: SIMVASTATIN 20 MG TABLET PO SCH (20:16)
[2021-12-18] MEDS: LORazepam 2 MG/ML VIAL IV PRN ×3 (01:08→22:35)
[2021-12-18] MEDS: 0.9 % SODIUM CHLORIDE 250 ML IV SCH (05:57)
[2021-12-18] MEDS: 0.9 % SODIUM CHLORIDE 10 ML SYRINGE IV SCH ×3 (05:57→20:19)
[2021-12-18] MEDS: INSULIN LISPRO 1 UNIT/0.01 ML UNIT SQ SCH ×4 (07:29→20:32)
[2021-12-18] MEDS: DEXAMETHASONE 4 MG TABLET PO SCH (07:31)
[2021-12-18] MEDS: ASPIRIN 81 MG TAB.CHEW PO SCH (07:31)
[2021-12-18] MEDS: DOCUSATE SODIUM 100 MG CAPSULE PO SCH ×2 (07:31→20:19)
[2021-12-18] MEDS: VITAMIN D3 25 MCG TABLET PO SCH ×2 (07:32→20:19)
[2021-12-18] MEDS: LISINOPRIL 2.5 MG TABLET PO SCH (07:32)
[2021-12-18] MEDS: ALLOPURINOL 100 MG TABLET PO SCH ×2 (07:32→20:19)
[2021-12-18] MEDS: METOPROLOL TARTRATE 25 MG TABLET PO SCH ×3 (07:32→20:19)
[2021-12-18] MEDS: BARICITINIB 2 MG TABLET PO SCH (07:32)
[2021-12-18 08:44] LABS: Basophils # (Auto) 0.01 K/mcL (0.00-0.30); Basophils % (Auto) 0.1 % (0.0-2.0); Eosinophils # (Auto) 0 K/mcL (0.00-0.70); Eosinophils % (Auto) 0 % (0.0-7.0); Hematocrit 28.3 % (40.1-51.0); Hemoglobin 9.2 g/dL (13.7-17.5); Lymphocytes # (Auto) 0.33 K/mcL (1.50-4.80); Lymphocytes % (Auto) 4.2 % (15.5-49.0); Mean Cell Volume 94.6 fL (80.0-100.0); Mean Corpuscular HGB Conc 32.5 g/dL (31.0-36.0); Mean Platelet Volume 9.7 fL (7.4-10.4); Monocytes # (Auto) 0.22 K/mcL (0.10-0.90); Monocytes % (Auto) 2.8 % (1.0-12.0); Neutrophils % (Auto) 92.9 % (38.0-78.0); Platelet Count 368 K/mcL (140-440); RBC 2.99 M/mcL (4.63-6.08); Red Cell Distribution Width 13.1 % (11.5-14.5); WBC 7.9 K/mcL (4.5-11.0)
[2021-12-18 08:59] LABS: ALT/SGPT 25 U/L (<40); AST/SGOT 40 U/L (<40); Albumin 2.8 gm/dL (3.2-5.2); Alkaline Phosphatase 62 U/L (39-117); Bilirubin,Direct < 0.2 mg/dL (0-0.3); Bilirubin,Total 0.2 mg/dL (0.1-1.0); Blood Urea Nitrogen 45 mg/dL (8-23); Calcium 8.3 mg/dL (8.6-10.4); Carbon Dioxide 22 mmol/L (22-30); Chloride 107 mmol/L (96-108); Globulin 2.9 gm/dL (2.2-3.7); Glomerular Filtration Rate 45; Glucose 152 mg/dL (70-105); Lactate Dehydrogenase 346 U/L (135-225); Phosphorous 4.8 mg/dL (2.5-4.5); Triglycerides 24 mg/dL (<150); Uric Acid 5.6 mg/dL (2.5-8.0)
[2021-12-18] MEDS ORDERED: ENOXAPARIN 40 MG/0.4 ML SYRINGE SQ SCH (09:00)
[2021-12-18] MEDS: cefTRIAXone 2 GM in DEXTROSE 5% IN WATER 50 ML IV SCH (09:13)
[2021-12-18] MEDS ORDERED: 0.9 % SODIUM CHLORIDE 1,000 ML BAG IV ONE (10:23)
[2021-12-18] MEDS ORDERED: 0.9 % SODIUM CHLORIDE 1,000 ML IV ONE (10:30)
[2021-12-18] MEDS ORDERED: 0.9 % SODIUM CHLORIDE 1,000 ML IV SCH ×2 (19:45→22:05)
[2021-12-18] MEDS: SIMVASTATIN 20 MG TABLET PO SCH (20:19)
[2021-12-18] MEDS ORDERED: METOPROLOL TARTRATE 5 MG/5 ML VIAL IV PRN (21:56)
[2021-12-18] MEDS ORDERED: METOPROLOL TARTRATE 5 MG/5 ML VIAL IV ONE (22:05)
[2021-12-18] MEDS ORDERED: ALBUTEROL SULFATE 2.5 MG/3 ML NEBULIZER NEB PRN (22:21)
--- NOTE | 2021-12-18 22:23 | Internal Med Progress Note ---
SUBJECTIVE Subjective Patient information: Note initiated : 12/18/21 at 10:22 pm Service Date, if different from initiated Date: [] Patient: Mushtaq Demarco a 86 y/o M admitted on 12/13/21 for SOB. altered mental. Chief Complaint: [] Interval history: History of present illness: Mr. Demarco is a 86 year old M Is a poor historian and most of history is obtained from the chart. Patient was brought in yesterday for weakness that has been increasing over the past week. Patient is unvaccinated for Covid. Is hypoxic in the ED and required 4 L of oxygen. He was found to be Covid positive. Patient remained stable in ER and had home oxygen and was discharged with follow-up. However patient presented back today with dyspnea. He was febrile and tachycardic in the ED. His oxygen saturations were 83% on at home on oxygen. Placed on a nonrebreather in the ED titrated down to 10 to 12 L oxygen mask. Chest x-ray with bilateral infiltrates. Mild leukocytosis although did get steroids yesterday in the ED. Also found to be hyponatremic. Renal function improved from yesterday. In the ED he was given dexamethasone. 12/14 Patient seems to be doing well today. On 4 to 6 L nasal cannula. No overnight event or new complaints. No leukocytosis today, no bandemia on yesterday lab. Concern for pneumonia on chest imaging and procalcitonin mildly elevated Hyponatremia resolved. 12/15 Patient was on 3 L and then with physical therapy then required increased oxygen needs after. Was placed on nonrebreather and tried to place heated high flow but patient pulled tubes out. Patient peers to have dementia. Renal function improved. 12/16 Was on a nonrebreather for a while after physical therapy yesterday. Now down to 5 and 6 L. 12/17 Improved oxygen requirement, down to 3 L/min. Was agitated last night, started precedex however discontinued after the patient developed hypotension. Zyprexa IM given with some effect however EKG showed prolonged QTc. Discussed agitation management with family, options are restraints or prn benzodiazepines given the QT prolongation. Family felt that Ativan was work better as restraints would likely worsen agitation as the patient does not like to be restrained. Family says the patient has had intermittent agitation at home recently. Started low dose ativan IV prn for severe agitation. Chest xray stable. 12/18 The patient aspirated today and required significantly more oxygen supplementation. Updated family about poor prognosis if the patient continues to aspirate. Family wants to take the patient home on hospice next week however the patient may pass in the hospital before that time. Physical exam Head: Atraumatic, normal inspection. Eyes: normal appearance, no scleral icterus. Neck: full ROM Respiratory: increased respiratory rate, bilateral rales Cardiovascular: normal rate and rhythm, S1, S2. GI/Abdominal: soft, nontender, no guarding. Extremities: full range of motion, nontender. Neurological: CN II-XII intact, intact motor, intact sensation. Psychiatric: normal mood, impaired cognition Skin: warm, normal color Constitutional Vitals: Vital Signs Temp Pulse Resp BP Pulse Ox 97.4 F 92 H 19 156/62 88 L 12/18/21 20:00 12/18/21 20:00 12/18/21 20:00 12/18/21 20:00 12/18/21 20:00 Period Temp Pulse Resp BP Sys/Echevarria Pulse Ox Last 24 Hr 97 F-98.9 F 70-108 13-26 91-156/44-68 88-96 Intake and Output 12/18/21 12/18/21 12/19/21 13:59 21:59 05:59 Intake Total 50 980 Output Total 86 380 Balance -36 600 Intake & Output: Intake & Output 12/18/21 12/18/21 12/19/21 13:59 21:59 05:59 Intake Total 50 980 Output Total 86 380 Balance -36 600 Intake: IV 50 980 Sodium Chloride 0.9% 1,000 ml @ 980 100 mls/hr IV ONCE ONE Rx#: [id number] Rocephin 2 gm In Dextrose 5% in 50 Water 50 ml @ 100 mls/hr IV Q24H [facility] Rx#:[id number] Output: Urine Catheter Amount 86 380 Other: Urine Appearance Clear Sediment Uretheral (Kimbrough) Clear Sediment Urine Color Dark Yellow Bright Yellow Uretheral (Kimbrough) Dark Yellow Bright Yellow OBJ DATA Labs CBC & Chem 7: 12/18/21 13:59 12/18/21 08:05 Labs: Abnormal Lab Results 12/18/21 12/18/21 12/18/21 13:59 08:05 08:05 RBC 2.99 L Hgb 10.7 L 9.2 L Hct 28.3 L Neut % (Auto) 92.9 H Lymph % (Auto) 4.2 L Lymph # (Auto) 0.33 L Carbon Dioxide Anion Gap BUN 45 H Creatinine 1.4 H Glucose 152 H Calcium 8.3 L Phosphorus 4.8 H Ferritin AST 40 H Lactate Dehydrogenase 346 H C-Reactive Protein Total Protein 5.7 L Albumin 2.8 L Procalcitonin 12/17/21 12/16/21 12/16/21 05:25 05:18 05:18 RBC Hgb Hct Neut % (Auto) Lymph % (Auto) Lymph # (Auto) Carbon Dioxide 21 L 20 L Anion Gap 17.0 H BUN 49 H 40 H Creatinine 1.3 H Glucose 125 H 136 H Calcium 8.4 L Phosphorus Ferritin 1385.0 H AST Lactate Dehydrogenase C-Reactive Protein Total Protein Albumin Procalcitonin 12/16/21 12/16/21 05:18 05:18 RBC Hgb Hct Neut % (Auto) Lymph % (Auto) Lymph # (Auto) Carbon Dioxide Anion Gap BUN Creatinine Glucose Calcium Phosphorus Ferritin AST Lactate Dehydrogenase C-Reactive Protein 4.30 H Total Protein Albumin Procalcitonin 0.12 H Meds: Medications Acetaminophen (Acetaminophen 325 Mg Tablet) 650 mg PO Q6HP PRN; Protocol PRN Reason: Per Pain Protocol/Fever > 101 Last Admin: 12/16/21 20:59 Dose: 650 mg Documented by: Albuterol/Ipratropium (Ipratropium/Albuterol 3 Ml Ampul.Neb) 3 ml NEB Q4HP PRN PRN Reason: Shortness Of Breath Allopurinol (Allopurinol 100 Mg Tablet) 100 mg PO BID [facility] Last Admin: 12/18/21 20:19 Dose: Not Given Documented by: Aspirin (Aspirin 81 Mg Tab.Chew) 81 mg PO DAILY [facility] Last Admin: 12/18/21 07:31 Dose: Not Given Documented by: Dexamethasone (Dexamethasone 4 Mg Tablet) 6 mg PO DAILY [facility] Last Admin: 12/18/21 07:31 Dose: Not Given Documented by: Dextrose (Dextrose 50% 50 Ml Vial) 0 ml IV UD PRN PRN Reason: Hypoglycemia Diagnostic Test (Pha) (Accu-Chek 1 Each Strip) 1 each FS ACHS [facility] Last Admin: 12/18/21 20:32 Dose: 1 each Documented by: Docusate Sodium (Docusate Sodium 100 Mg Capsule) 100 mg PO BID [facility] Last Admin: 12/18/21 20:19 Dose: Not Given Documented by: Enoxaparin Sodium (Enoxaparin 40 Mg/0.4 Ml Syringe) 40 mg SQ DAILY [facility] Last Admin: 12/18/21 09:12 Dose: 40 mg Documented by: Glucose (Dextrose 31 Gm Oral.Susp) 15 gm PO PRN PRN PRN Reason: Hypoglycemia Potassium Chloride 40 meq/ (Dextrose) 520 mls @ 130 mls/hr IV UD PRN PRN Reason: Potassium < 3 Magnesium Sulfate (Magnesium Sulfate) 2 gm in 50 mls @ 50 mls/hr IV UD PRN PRN Reason: Magnesium </= 1.6 Ceftriaxone Sodium 2 gm/ (Dextrose) 50 mls @ 100 mls/hr IV Q24H [facility]; Protocol Stop: 12/20/21 08:59 Last Infusion: 12/18/21 09:43 Dose: Infused Documented by: Sodium Chloride (Sodium Chloride 0.9%) 1,000 mls @ 100 mls/hr IV .Q10H [facility] Stop: 12/19/21 05:44 Last Admin: 12/18/21 20:20 Dose: 100 mls/hr Documented by: Insulin Human Lispro (Insulin Lispro 1 Unit/0.01 Ml Unit) 0 unit SQ ACHS [facility]; Protocol Last Admin: 12/18/21 20:32 Dose: Not Given Documented by: Lorazepam (Lorazepam 2 Mg/Ml Vial) 0.25 mg IV Q4HP PRN PRN Reason: Agitation Last Admin: 12/18/21 19:15 Dose: 0.25 mg Documented by: Metoprolol Tartrate (Metoprolol Tartrate 25 Mg Tablet) 25 mg PO BID [facility] Last Admin: 12/18/21 20:19 Dose: Not Given Documented by: Metoprolol Tartrate (Metoprolol Tartrate 5 Mg/5 Ml Vial) 5 mg IV Q4HP PRN PRN Reason: Tachyarrhythmias Ondansetron HCl (Ondansetron 4 Mg/2 Ml Vial) 4 mg IV Q4HP PRN PRN Reason: Nausea And Vomiting Polyethylene Glycol (Polyethylene Glycol 3350 17 Gm Packet) 17 gm PO DAILYP PRN PRN Reason: Constipation Potassium Chloride (Potassium Chloride 20 Meq Tablet) 40 meq PO UD PRN PRN Reason: Potssium is 3-3.5 Potassium Chloride (Potassium Chloride 20 Meq Tablet) 40 meq PO UD PRN PRN Reason: Potassium < 3 Senna (Sennosides 1 Tablet) 2 tab PO DAILYP PRN PRN Reason: Constipation Simvastatin (Simvastatin 20 Mg Tablet) 20 mg PO QPM [facility] Last Admin: 12/18/21 20:19 Dose: Not Given Documented by: Sodium Chloride (0.9 % Sodium Chloride 10 Ml Syringe) 10 ml IV Q8 [facility] Last Admin: 12/18/21 20:19 Dose: Not Given Documented by: Vitamin D (Vitamin D3 25 Mcg Tablet) 50 mcg PO BID [facility] Last Admin: 12/18/21 20:19 Dose: Not Given Documented by: A/P Narrative A/P Narrative: A: *Covid PNA w/ARDS & concern for bacterial coinfection: *Acute hypoxic respiratory failure: 2/2 above -back down to 3-5L NC. No PE *Recurrent aspiration *Intermittent agitation *Prolonged QTc *Resolved hyponatremia *Metabolic acidosis: improving *CKD III: *Anemia, chronic: *CAD w/CABG: has statin but didn't see ASA on home meds *HTN: *Urinary retention: Patient straight caths at home, kimbrough in ED *DM: a1c 5.6 *Suspect underlying Dementia: *Guarded prognosis P: -Chest xray -IV fluid today -Remdesivir/dexamethasone/Baricit -IS/Acapella, prn Nebs, RT -O2 supplementation -Proning/mobilization/OOB to chair -rocephin -ativan IV prn for agitation -prn lasix -cont ACEI/BB -Cont ASA, cont statin -SSI -pt/ot -remove kimbrough when able -ppx: lovenox bid Time Spent With Patient Time: Total time spent is greater than 50% in coordination of care (as documented) at patient's floor/unit and/or counseling patient:
[2021-12-18 22:57] LABS: Hematocrit 37.7 % (40.1-51.0); Hemoglobin 11.6 g/dL (13.7-17.5); Mean Cell Volume 100.8 fL (80.0-100.0); Mean Corpuscular HGB Conc 30.8 g/dL (31.0-36.0); Mean Platelet Volume 9.8 fL (7.4-10.4); Platelet Count 510 K/mcL (140-440); RBC 3.74 M/mcL (4.63-6.08); Red Cell Distribution Width 13.2 % (11.5-14.5); WBC 16.4 K/mcL (4.5-11.0)
[2021-12-18 23:50] LABS: Anisocytosis 1+ (None Seen); Hypochromasia 1+ (None Seen); Lymphocytes % 8 % (15-49); Macrocytosis 1+ (None Seen); Monocytes % (Manual) 1 % (1-12); Platelet Estimate INCREASED (Normal); RBC Morphology ABNORMAL (Normal); Segmented Neutrophils % 91 % (38-78)
[2021-12-19] MEDS: LORazepam 2 MG/ML VIAL IV PRN ×3 (01:20→04:05)
[2021-12-19] MEDS: HYDROmorphone 1 MG/ML SYRINGE IV PRN ×3 (01:20→04:06)
[2021-12-19] MEDS ORDERED: HYDROmorphone 1 MG/ML SYRINGE ONE ×3 (01:24→04:10)
[2021-12-19] MEDS ORDERED: LORazepam 2 MG/ML VIAL ONE ×3 (01:25→04:10)
[2021-12-19] MEDS: 0.9 % SODIUM CHLORIDE 10 ML SYRINGE IV SCH (04:23)
--- NOTE | 2021-12-19 05:52 | XRay Report ---
INDICATION: increased oxygen demand TECHNIQUE: AP portable semiupright chest x-ray COMPARISON: Previous examinations dated 12/16/2021 and 12/17/2021. Previous chest CT scan dated 12/13/2021 FINDINGS:Examination was initially interpreted by [facility] Lungs:Increasing bilateral pulmonary parenchymal infiltrates. These have a peripheral distribution. Appearance remains consistent with covid pneumonia. Heart, vascular:There is cardiomegaly, unchanged. No evidence for congestive heart failure. Patient has undergone previous coronary artery bypass procedure Mediastinum, kosta:No mediastinal widening. No hilar mass Pleura:No pleural fluid. No pleural-based mass or calcification Skeletal:Previous median sternotomy IMPRESSION: 1. Bilateral pulmonary parenchymal infiltrates consistent with covid pneumonia 2. Interval worsening Interpreted and Authenticated by: Edd Novoa 12/19/21
[2021-12-19] MEDS ORDERED: 0.9 % SODIUM CHLORIDE 10 ML SYRINGE IV SCH (06:00)
--- NOTE | 2021-12-19 20:10 | EKG ---
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
--- NOTE | 2021-12-19 20:10 | EKG ---
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
--- NOTE | 2021-12-20 17:11 | Death Note ---
Discharge Sum: Prov Provider Patient information: Note initiated : 12/20/21 at 5:10 pm Service Date, if different from initiated Date: [] Patient: Mushtaq Demarco a 86 y/o M admitted on 12/13/21 for SOB. altered mental. Chief Complaint: [] Primary care physician: Giovanni Klein MD Consults: 12/13/21 Consult to Physician [CONS] Stat Comment: Consulting Provider: [facility] Reason For Exam: Physician to Consult 12/14/21 07:15 Consult to Physician [CONS] Routine Comment: Consulting Provider: Nazario Porter Reason For Exam: Physician to Consult Discharge Sum: Summary Date and Time Date of admission: 12/13/21 21:34 Date of : 12/19/21 Time of : 04:30 Summary Details: Mr. Demarco is a 86 year old M Is a poor historian and most of history is obtained from the chart. Patient was brought in yesterday for weakness that has been increasing over the past week. Patient is unvaccinated for Covid. Is hypoxic in the ED and required 4 L of oxygen. He was found to be Covid positive. Patient remained stable in ER and had home oxygen and was discharged with follow-up. However patient presented back today with dyspnea. He was febrile and tachycardic in the ED. His oxygen saturations were 83% on at home on oxygen. Placed on a nonrebreather in the ED titrated down to 10 to 12 L oxygen mask. Chest x-ray with bilateral infiltrates. Mild leukocytosis although did get steroids yesterday in the ED. Also found to be hyponatremic. Renal function improved from yesterday. In the ED he was given dexamethasone. 12/14 Patient seems to be doing well today. On 4 to 6 L nasal cannula. No overnight event or new complaints. No leukocytosis today, no bandemia on yesterday lab. Concern for pneumonia on chest imaging and procalcitonin mildly elevated Hyponatremia resolved. 12/15 Patient was on 3 L and then with physical therapy then required increased oxygen needs after. Was placed on nonrebreather and tried to place heated high flow but patient pulled tubes out. Patient peers to have dementia. Renal function improved. 12/16 Was on a nonrebreather for a while after physical therapy yesterday. Now down to 5 and 6 L. 12/17 Improved oxygen requirement, down to 3 L/min. Was agitated last night, started precedex however discontinued after the patient developed hypotension. Zyprexa IM given with some effect however EKG showed prolonged QTc. Discussed agitation management with family, options are restraints or prn benzodiazepines given the QT prolongation. Family felt that Ativan was work better as restraints would likely worsen agitation as the patient does not like to be restrained. Family says the patient has had intermittent agitation at home recently. Started low dose ativan IV prn for severe agitation. Chest xray stable. 12/18 The patient aspirated today and required significantly more oxygen supplementation. Updated family about poor prognosis if the patient continues to aspirate. Family wants to take the patient home on hospice next week however the patient may pass in the hospital before that time.Spoke with family again for an update on deteriorating clinical status. Family ok with transitining to comfort cares at this time and will come to be with the patient. 12/19 The patient at 4:30 AM on comfort cares. Family was able to be at the bedside. Additional Data Attending physician: Gabino Douglas MD
== END 2021-12-19 04:30 | disposition expired | DRG 871 ==
LOC: ED 17:23 → ICU 21:34
PROVIDERS: ADMIT Internal Medicine; ATTEND Internal Medicine